=== PATIENT | male | born 1965 | race Hispanic/Latino ===

== ENCOUNTER 2025-07-13 11:07 | Inpatient (IN) | payer BC ==
[~2025-07-13] VITALS: Ht 172.7 cm; Wt 94.1 kg
[~2025-07-13 11:07] MED LIST: AMLO-258 PO; ASPI-1005 PO; ATOR20TA65 PO; CARAL PO; FERR325T22 PO; LOSA50TA64 PO; METO-409 PO; OMEP40CA21 PO; PANT40TA PO
--- NOTE | 2025-07-13 11:12 | ERN ---
ED Note History of Present Illness Stated Complaint: ABN NA. CHL. AST Chief Complaint: Abnormal Labs Time Seen by MD: 11:08 Dictation: PATIENT IS A 60-YEAR-OLD MALE COMING IN FROM [facility] WITH COMPLAINTS OF HAVING ABNORMAL LABS. HE STATES HE HAD BLOOD DRAWN AT [facility] ON 07/08, TODAY WAS CALLED IN AND TOLD THAT HIS SODIUM WAS 123, CHLORIDE 89 AND AST WAS 60. HE DOES NOT HAVE ANY COMPLAINTS AT THIS TIME. STATES HE WAS JUST ADVISED TO COME TO THE EMERGENCY ROOM FOR FURTHER EVALUATION AND TREATMENT. Allergies: Coded Allergies: No Known Drug Allergies (Verified Allergy, Unknown, 11/27/15) Home Meds Active Scripts Ferrous Sulfate (Ferrous Sulfate) 325 Mg Tablet, 325 MG PO DAILY for 15 Days, #15 TAB Prov:HOSSEIN MAURO [facility]ICING [facility] 04/26/20 Sucralfate (Carafate Susp) 1 Gm/10 Ml Susp, 1 GM PO TID for 15 Days, #450 ML Prov:HOSSEIN MAURO NP 04/26/20 Omeprazole (Omeprazole) 40 Mg Capsule.dr, 40 MG PO BID for 15 Days, #30 CAP Prov:HOSSEIN MAURO [facility] 04/26/20 Ferrous Sulfate (Ferrous Sulfate) 325 Mg Tablet, 325 MG PO DAILY for 15 Days, #15 TAB Prov:HOSSEIN MAURO NP 04/26/20 Pantoprazole Sodium (Protonix) 40 Mg Tablet.dr, 40 MG PO DAILY for 15 Days, #15 TAB Prov:HOSSEIN MAURO [facility] 04/26/20 Reported Medications Amlodipine Besylate (Amlodipine Besylate) 10 Mg Tablet, 10 MG PO HS, TAB 04/24/20 Aspirin (ASPIRIN 81MG CHEW TAB) 81 Mg Tab.chew, 81 MG PO DAILY, TAB.CHEW 04/24/20 Losartan Potassium (Losartan Potassium) 50 Mg Tablet, 50 MG PO DAILY, TAB 04/24/20 Atorvastatin Calcium (Atorvastatin Calcium) 20 Mg Tablet, 20 MG PO DAILY, TAB 04/24/20 Metoprolol Succinate (Metoprolol Succinate) 100 Mg Tab.er.24h, 100 MG PO DAILY, TAB 11/27/15 Past Medical History RN Note Reviewed/Agreed w/PFSH: Yes Review of System Dictation CONSTITUTIONAL: NEGATIVE EXCEPT FOR HPI HEAD/FACE: NEGATIVE EXCEPT FOR HPI EENT: NEGATIVE EXCEPT FOR HPI RESPIRATORY: NEGATIVE EXCEPT FOR HPI GASTROINTESTINAL/ABDOMINAL: NEGATIVE EXCEPT FOR HPI GENITOURINARY: NEGATIVE EXCEPT FOR HPI MUSCULOSKELETAL: NEGATIVE EXCEPT FOR HPI INTEGUMENTARY: NEGATIVE EXCEPT FOR HPI NEUROLOGICAL/PSYCH: NEGATIVE EXCEPT FOR HPI HEMATOLOGIC/LYMPHATIC: NEGATIVE EXCEPT FOR HPI ALL SYSTEMS NEGATIVE, EXCEPT NOTED ABOVE. 13 POINT REVIEW OF SYSTEMS ASSESSED AND ALL NEGATIVE EXCEPT FOR ABOVE. Initial Vital Sign VS Vital Signs Date Time Temp Pulse Resp B/P (MAP) Pulse Ox O2 Delivery O2 Flow Rate FiO2 07/13/25 11:08 97.9 83 16 147/83 97 Room Air 0 07/13/25 14:28 21 Physical Exam Dictation VITAL SIGNS REVIEWED GENERAL APPEARANCE: ALERT, ORIENTED X 3, NO ACUTE DISTRESS, WELL DEVELOPED, NOURISHED. NO FOCAL COMPLAINTS 0/10 PAIN HEAD AND FACE: NON-TRAUMATIC. EYES: PERRL, PINK CONJUNCTIVAS, EYELID NO TRAUMA, ANTERIOR CHAMBER WITH ARCUS SENILIS. EARS: PINNAS INTACT AND NO SIGNS OF TRAUMA OR ERYTHEMA EAR CANALS CLEAR AND NO DISCHARGE TM NO ERYTHEMA NOSE: NO DISCHARGE, NO BLEEDING. OROPHARYNX: MOUTH NORMAL, TONGUE PINK, PHARYNX CLEAR,NO ERYTHEMA, TONSILS NO EXUDATES, NO ABSCESSES NOTED, MUCOUS MEMBRANE MOIST NECK: SUPPLE, NON-TENDER, NO THYROMEGALY, NO MASSES, NO JVD, NO BRUITS BREAST:DEFERRED CHEST:NO TENDERNESS, NO CREPITUS, NO PARADOXICAL MOVEMENT, NO RETRACTIONS LUNGS:CLEAR, WELL-VENTILATED, SYMMETRIC, NO RALES, NO WHEEZING, NO RHONCHI, NO STRIDOR, GOOD BREATH SOUNDS BILATERALLY HEART: REGULAR RATE, REGULAR RHYTHM, NO MURMUR, NO GALLOPS VASCULAR: NO PERIPHERAL EDEMA, ABDOMEN: SOFT, POSITIVE BOWEL SOUNDS, NONDISTENDED, NO GUARDING, NONTENDER, NO REBOUND, NO MASSES NO HEPATOMEGALY, NO SPLENOMEGALY, NO SOSA'S SIGN, NO HERNIAS. RECTAL: DEFERRED GENITAL: DEFERRED NEUROLOGICAL: NORMAL SPEECH, MOTOR FUNCTION INTACT, SENSORY FUNCTION INTACT MUSCULOSKELETAL: NECK NONTENDER, FULL RANGE OF MOTION, BACK NONTENDER, FULL RANGE OF MOTION, EXTREMITIES: NONTENDER, FULL RANGE OF MOTION SKIN: COLOR PINK, DRY, NO TURGOR, NO RASH, NO LACERATIONS, NO ABRASIONS, NO CONTUSIONS. LYMPHATIC: DEFERRED Results (Laboratory/Radiology) Laboratory/Radiology Laboratory Tests Test 07/13/25 11:23 07/13/25 11:27 Urine Color LIGHT-YELLOW (YELLOW) Urine Appearance CLEAR (CLEAR) Urine pH 6.5 (5.0-8.0) Urine Specific [place] 1.004 (1.001-1.031) Urine Protein NEGATIVE mg/dL (NEGATIVE) Urine Glucose (UA) NEGATIVE mg/dL (NEGATIVE) Urine Ketones NEGATIVE mg/dL (NEGATIVE) Urine Occult Blood NEGATIVE (NEGATIVE) Urine Nitrate NEGATIVE (NEGATIVE) Urine Bilirubin NEGATIVE mg/dL (NEGATIVE) Urine Urobilinogen 0.2 mg/dL (0.2-1.0) Urine Leukocyte Esterase NEGATIVE Shaggy/uL White Blood Count 6.5 K/uL (4.8-10.8) Red Blood Count 4.51 MIL/uL (4.50-6.20) Hemoglobin 14.7 g/dL (14.0-18.0) Hematocrit 40.7 % (42-54) L Mean Corpuscular Volume 90.2 fL (79-99) Mean Corpuscular Hemoglobin 32.6 pg (27.0-33.0) Mean Corpuscular Hemoglobin Concent 36.1 g/dL (32.0-36.0) H Red Cell Distribution Width 12.3 % (11.0-15.5) Platelet Count 201 K/uL (130-400) Mean Platelet Volume 8.9 fL (7.5-10.5) Immature Granulocyte % (Auto) 1.7 % (0-1) H Neutrophils (%) (Auto) 77.6 % (40.0-77.0) H Lymphocytes (%) (Auto) 10.5 % (21.0-51.0) L Monocytes (%) (Auto) 8.2 % (3.0-13.0) Eosinophils (%) (Auto) 1.2 % (0.0-8.0) Basophils (%) (Auto) 0.8 % (0.0-5.0) Neutrophils # (Auto) 5.0 K/uL (1.8-7.7) Lymphocytes # (Auto) 0.7 K/uL (1.0-4.8) L Monocytes # (Auto) 0.5 K/uL (0.1-1.0) Eosinophils # (Auto) 0.08 K/uL (0.00-0.70) Basophils # (Auto) 0.05 K/uL (0.00-0.20) Absolute Immature Granulocyte (auto 0.11 K/uL (0-1) Nucleated Red Blood Cells 0.0 % (0.0-0.19) Red Blood Cell Morphology See comments Sodium Level 121 mmol/L (136-145) L Potassium Level 3.8 mmol/L (3.5-5.1) Chloride Level 90 mmol/L (101-111) *L Carbon Dioxide Level 26 mmol/L (21-32) Blood Urea Nitrogen 16 mg/dL (7-18) Creatinine 1.0 mg/dL (0.5-1.3) Glomerular Filtration Rate Calc 87 mL/min (>90) Random Glucose 109 mg/dL (70-105) H Total Calcium 7.6 mg/dL (8.5-10.1) L Total Bilirubin 0.9 mg/dL (0.2-1.0) Aspartate Amino Transf (AST/SGOT) 61 U/L (10-37) H Alanine Aminotransferase (ALT/SGPT) 39 U/L (12-78) Alkaline Phosphatase 198 U/L (50-136) H Total Protein 4.6 g/dL (6.0-8.3) L Albumin 2.0 g/dL (3.5-5.0) L 1445/ULTRASOUND RIGHT UPPER QUADRANT DEMONSTRATES A SIZE TEAS PATIENT IS CONTRACTED GALLBLADDER GALLBLADDER WALL NORMAL COMMON BILE DUCT NORMAL NO PERICHOLECYSTIC FLUID Labs Reviewed?: Yes ED Course ED Course Orders Procedure Category Date Status Time Cbc With Differential LAB 07/13/25 Complete 11:10 Comprehensive LAB 07/13/25 Complete Metabolic Panel 11:10 Urinalysis Profile LAB 07/13/25 Complete 11:10 0.9%Nacl 1000ml (Ns PHA 07/13/25 Complete 1000ml) 11:30 Us Abdominal Ruq\Ltd US 07/13/25 Resulted 13:56 Cacl 1gm Syg (Calcium PHA 07/13/25 Complete Chloride 1g Syg) 15:00 Edm Admit Bridge Order ADM 07/13/25 Verified 16:04 Current Medications Medications (Trade) Dose Ordered Sig/Emeli Route PRN Reason Start Time Stop Time Status Last Admin Dose Admin Calcium Chloride (Calcium Chloride 1g Syg) 1,000 mg ONCE ONCE IVP 07/13/25 15:00 07/13/25 15:01 DC Sodium Chloride 1,000 ml @ 0 mls/hr ONCE ONCE IV 07/13/25 11:30 07/13/25 11:31 DC 07/13/25 14:28 Vital Signs Date Time Temp Pulse Resp B/P (MAP) Pulse Ox O2 Delivery O2 Flow Rate FiO2 07/13/25 14:28 98.1 81 18 127/80 97 Room Air* 0 21 07/13/25 11:08 97.9 83 16 147/83 97 Room Air 0 1450/PATIENT HAS A SODIUM OF 121 CALCIUM IS 7.9. HE ALSO HAS A ELEVATED ALK- PHOS WE WILL ADMIT PATIENT TO THE HOSPITAL FOR DEHYDRATION CIRRHOSIS ELECTROLYTE IMBALANCE AND FLUID RESUSCITATION AND MANAGEMENT. 1605/SPOKE WITH , REVIEWED LABS AND INTERVENTIONS FOR LOW-SODIUM AND LOW CALCIUM. HE AGREED TO ADMIT PATIENT. Medical Decision Making MDM MDM: DIFFERENTIAL DIAGNOSIS: ELECTROLYTE IMBALANCE/DEHYDRATION/CIRRHOSIS/P ANCREATITIS/UTI/CHOLELITHIASIS/CHOLEDOCHO CYSTITIS RATIONALE: TESTS CONSIDERED AND ORDERED SECONDARY TO SHARED DECISION MAKING I NCLUDE: LABS, ECG AND RADIOLOGY PREVIOUS OUTSIDE RECORDS REVIEWED: OLD ER VISITS. RISK OF COMPLICATION AND/OR MORBIDITY OR MORTALITY OF PATIENT MANAGEMENT: NONE MEDICATIONS-PER MEDICATION RECONCILIATION NEED FOR HOSPITALIZATION: PATIENT DOES MEET CRITERIA FOR HOSPITALIZATION. WE WILL NEED BE ADMITTED FOR FLUID RESUSCITATION AND DRESSING OF ELEVATED ALK-PHOS AND ELECTROLYTE IMBALANCE NEED FOR EMERGENCY MAJOR/MINOR SURGERY: NO THERE ARE NO SOCIAL CONCERNS WITH THIS PATIENT. PRESCRIPTION DRUG MANAGEMENT PRESCRIPTIONS WILL INCLUDE SYMPTOMATIC CARE PATIENT'S PRIOR EXTERNAL MEDICAL RECORDS FROM OTHER ER VISITS WERE REVIEWED BY ME INDICATED. PRIOR TESTING AND RESULTS FROM PREVIOUS VISITS WERE REVIEWED. PRIOR TESTS WERE TAKEN INTO ACCOUNT WITH MEDICAL DECISION MAKING AND RESOURCE UTILIZATION, INDEPENDENT HISTORIAN/HISTORIANS WERE USED TO OBTAIN COMPLETE MEDICAL HISTORY. I INDEPENDENTLY INTERPRETED THE TEST THAT WERE PERFORMED, RESULTS WERE REVIEWED BY ME AND CONSIDERED FINDINGS ON RADIOLOGY IF ORDERED. MEDICAL MANAGEMENT AND EXAMINATION INTERPRETATION DISCUSSIONS WERE HAD BY ME WITH OTHER QUALIFIED HEALTHCARE PROFESSIONALS INDICATED FOR THE PATIENT'S CARE. DX & DISP Disposition: Inpatient Decision to Admit Time: 14:50 Departure Impression: Primary Impression: Hyponatremia Additional Impressions: Hypochloremia, Hypocalcemia, Elevated alkaline phosphatase level, Hypoalbuminemia, Cirrhosis Condition: Stable Referrals: SELF,REFERRAL (PCP) I have reviewed the case, and I agree with, Diagnosis and Plan ZITA BECERRA Jul 13, 2025 11:12
[2025-07-13 11:45] LABS: IMMATURE GRANULOCYTE ABSOLUTE 0.11 K/uL (0-1); NUCLEATED RED BLOOD CELLS 0.0 % (0.0-0.19); PLATELET COUNT (AUTO) 201 K/uL (130-400); RED BLOOD CELL COUNT(AUTO) 4.51 MIL/uL (4.50-6.20); RED CELL DISTRIBUTION WIDTH 12.3 % (11.0-15.5); WHITE BLOOD COUNT (AUTO) 6.5 K/uL (4.8-10.8)
[2025-07-13 12:04] LABS: APPEARANCE,URINE CLEAR (CLEAR); GLUCOSE, URINE (UA) NEGATIVE (NEGATIVE); LEUKOCYTE ESTERASE ,URINE NEGATIVE Leu/uL (NEGATIVE); NITRATE,URINE NEGATIVE (NEGATIVE); OCCULT BLOOD,URINE NEGATIVE (NEGATIVE)
[2025-07-13 12:04] LABS: ASPARTATE AMINOTRANSFERASE 61.0 U/L (10-37); CREATININE 1.0 mg/dL (0.5-1.3); GLOMERULAR FILTR. RATE CALC 87.0 mL/min (>90); GLUCOSE,RANDOM 109.0 mg/dL (70-105); SODIUM SERUM 121.0 mmol/L (136-145); TOTAL PROTEIN, SERUM 4.6 g/dL (6.0-8.3); UREA NITROGEN, BLOOD 16.0 mg/dL (7-18)
[2025-07-13 12:06] LABS: ADD UA MICROSCOPIC NO
[2025-07-13] MEDS: 0.9%NACL 1000ML 1,000 ML IV ONE (14:28)
[2025-07-13] MEDS: CACL 1GM SYG IVP ONE (15:00)
--- NOTE | 2025-07-13 15:04 | HMCIMG ---
EXAM: US Abdomen, Right Upper Quadrant. CLINICAL HISTORY: RIGHT UPPER QUADRANT PAIN/ELEVATED LFTS TECHNIQUE: Right upper quadrant sonography performed with image documentation. COMPARISON: Study dated 04/23/20. FINDINGS: LIVER: The liver is enlarged and measures approximately 18 cm. Coarse hepatic echotexture. A focal, rounded hyperechoic area( series 1, image 11 ) measuring 1.5 cm is visualized along the liver parenchyma. Further evaluation with CT triple phase abdomen and pelvis is recommended. Mild ascites is present. GALLBLADDER: The gallbladder appears contracted. Gallbladder wall thickness measures approximately 3 mm. No gallstones are evident. COMMON BILE DUCT: Measures approximately 4 mm. No biliary dilatation. PANCREAS: The pancreas is obscured by overlying bowel gas and is not adequately visualized.RIGHT KIDNEY: The right kidney measures 10.2 x 4.9 x 4.9 cm. Normal renal contours. No renal mass or calculus. No hydronephrosis. IMPRESSION: 1. Enlarged liver with coarse echotexture, suggestive of chronic liver disease. 2. 1.5 cm focal hyperechoic liver lesion, further evaluation with CT triple phase abdomen and pelvis recommended. 3. Mild ascites. /[place]
[2025-07-13] MEDS ORDERED: THIAMINE HCL 100 MG/ML 2ML VIAL IVP SCH (17:00)
--- NOTE | 2025-07-13 17:19 | NUR ---
PER DR BRANTELY, HOLD THE CALCIUM MEDICATION AT THIS TIME.
[2025-07-13 17:29] LABS: INR 1.02 (0.85-1.15)
[2025-07-13] MEDS ORDERED: PHARMACY COMMUNICATION MISC PRN (17:30)
[2025-07-13 17:45] LABS: CREATININE 1.1 mg/dL (0.5-1.3); GLOMERULAR FILTR. RATE CALC 77.0 mL/min (>90); GLUCOSE,RANDOM 103.0 mg/dL (70-105); SODIUM SERUM 123.0 mmol/L (136-145); UREA NITROGEN, BLOOD 14.0 mg/dL (7-18)
[2025-07-13 17:47] LABS: ALCOHOL, BLOOD 4 mg/dL (0-10)
[2025-07-13] MEDS ORDERED: IOHEXOL-350 75 ML VIAL IV ONE (17:52)
--- NOTE | 2025-07-13 18:12 | NUR ---
PER MD BRANTLEY, GI AND NEPHRO CONSULTS HAVE BEEN DONE.
[2025-07-13] MEDS: MAGNESIUM 2GM PREMIX 50ML 50 ML IV SCH (18:28)
[2025-07-13] MEDS ORDERED: PoTASSium chloRIDE 20MEQ ER 20 MEQ ERTAB PO PRN (18:30)
[2025-07-13] MEDS ORDERED: PoTASSium chl 10% ELIXIR 20MEQ 20 MEQ/15 ML UDCUP PO PRN (18:30)
[2025-07-13] MEDS: ALBUMIN (HUMAN) 25% 50 ML IV SCH (18:41)
[2025-07-13] MEDS: THIAMINE HCL 100 MG/ML 2ML VIAL IVP SCH (18:41)
--- NOTE | 2025-07-13 18:55 | HP ---
[facility] HISTORY AND PHYSICAL Date of Service: Jul 13, 2025 Time of Service: 18:55 HISTORY OF PRESENT ILLNESS: This is a 60 year old male with PMHx significant for HTN, HLD, Chronic alcoholism, Obesity, Gout who presented to the Hospital for further evaluation of abnormal labs. Patient had routine labs performed at PCP's office where he was found to have Sodium of 123 and Chloride of 89. Patient currently denies any headache, memory issues, nausea or vomiting. He reports that he has hx of chronic lower extremity edema for which he takes HCTZ 12.5 mg bid. He has also noticed that recently he has been having progressive abdominal distension, He has also noticed a reducible umbilical hernia involving the abdomen. He denies any bleeding issues. Reports drinking beer chronically since his 20's. Used to drink heavily and currently drinks about 3-4 beers daily. Denies significant hx of alcohol withdrawals. Reports having hx of HTN and is maintained on outpatient tx with Losartan 50 mg daily, Metoprolol succinate 100 mg daily. Patient on presentation to the hospital was found to have sodium of 121 and abnormal LFT's with AST of 61, ALT of 39 and Alk Phos of 198. Patient will be admitted to cardiac telemetry floor. We will stop HCTZ which is likely contributing to the Hyponatremia. Patient with signs of decompensated of liver disease with signs of ascites and chronic alcoholic hepatitis. Plan to rule out cirrhosis of the liver due to chronic alcoholism and patient will undergo CT triple phase for further evaluation of 1.5 cm focal hyperechoic liver lesion noted on abdominal US. We will see how patient progresses in the next 48-72 hours. REVIEW OF SYSTEMS CONSTITUTIONAL: Denies fevers, chills, or night sweats. No unintentional weight loss reported. NEUROLOGICAL: Denies headache, amaurosis fugax, motor weakness, sensory deficit, vertigo/spinning sensation, gait abnormalities, or tremors. ENT: No hearing loss, otalgia, otorrhea, rhinitis, rhinorrhea, hoarseness, or sore throat. CARDIOVASCULAR: Denies any exertional angina, dyspnea on exertion, orthopnea, paroxysmal nocturnal dyspnea, palpitations, life-threatening arrhythmias, claudication. PULMONARY: Denies any shortness of breath, cough, phlegm/sputum, hemoptysis, pleuritic chest pain. SLEEP: Denies morning headaches, daytime somnolence or napping. Denies difficulty falling asleep, staying asleep, waking from sleep. Denies knowledge of snoring. GASTROINTESTINAL: Denies any type of dysphagia to either liquids or solids. Denies nausea, vomiting, pyrosis, early satiety, abdominal pain, diarrhea, constipation, or changes in stool consistency or caliber. Denies coffee-ground emesis, hematemesis, hematochezia, or melanotic stools. Reports having progressive abdominal distension GENITOURINARY: Denies frequency, urgency, nocturia, hematuria or incontinence (Storage/Irritative symptoms.) Low urinary stream, straining to void, urinary intermittency or hesitancy, splitting of the voiding stream, terminal dribbling. ENDOCRINOLOGIC: Denies polyuria, polydipsia, polyphagia or heat/cold intolerances. HEMATOLOGIC: Denies thrombophilia/previous clots, or coagulopathy/bleeding disorders. ONCOLOGIC: Denies personal history of malignancy. DERMATOLOGIC: Denies rashes or pruritus. PSYCHIATRIC: Denies any suicidal or homicidal ideation. Denies hallucinations. 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 Resting in bed NEUROLOGICAL: Cranial nerves II-XII grossly intact. Motor is 5/5 in bilateral upper and lower extremities proximal to distal. No sensory deficits. HEENT: Face is symmetric. Pupils are equal and reactive. Extraocular movements are intact. NECK: Supple. No JVD. No thyromegaly. No submental, submandibular, pre- /postauricular, occipital or supraclavicular lymphadenopathy. CHEST: Normal chest expansion. No Telemetry. LUNGS: Absence of any rales, rhonchi or any wheezing. CARDIOVASCULAR: Regular. S1 and S2 normal. No appreciable rubs, murmurs or gallops. ABDOMEN: Distended with reducible umbilical hernia noted, fluid wave noted : Deferred. No [place]. EXTREMITIES: 2+ edema noted of the bilateral lower extremities SKIN: No skin breakdown. Vital Sign (Last 24 Hours) 07/13/25 14:28 Temp 98.1 Pulse 81 Resp 18 B/P (MAP) 127/80 Pulse Ox 97 O2 Delivery Room Air* O2 Flow Rate 0 FiO2 21 LABS: Laboratory: Test 07/13/25 17:09 07/13/25 11:27 07/13/25 11:23 Range/Units Prothrombin Time 10.8 9.6-11.6 SEC Prothromb Time International Ratio 1.02 0.85-1.15 Activated Partial Thromboplast Time 28.6 26.3-35.5 SEC Sodium Level 123 L 136-145 mmol/L Potassium Level 3.6 3.5-5.1 mmol/L Chloride Level 90 *L 101-111 mmol/L Carbon Dioxide Level 25 21-32 mmol/L Blood Urea Nitrogen 14 7-18 mg/dL Creatinine 1.1 0.5-1.3 mg/dL Glomerular Filtration Rate Calc 77 >90 mL/min Random Glucose 103 70-105 mg/dL Total Calcium 7.7 L 8.5-10.1 mg/dL Magnesium Level 1.60 L 1.80-2.40 mg/dL Ammonia < 10 L 11-32 umol/L Thyroid Stimulating Hormone (TSH) 2.52 0.36-3.74 uIU/mL Serum Alcohol 4 0-10 mg/dL White Blood Count 6.5 4.8-10.8 K/uL Red Blood Count 4.51 4.50-6.20 MIL/uL Hemoglobin 14.7 14.0-18.0 g/dL Hematocrit 40.7 L 42-54 % Mean Corpuscular Volume 90.2 79-99 fL Mean Corpuscular Hemoglobin 32.6 27.0-33.0 pg Mean Corpuscular Hemoglobin Concent 36.1 H 32.0-36.0 g/dL Red Cell Distribution Width 12.3 11.0-15.5 % Platelet Count 201 130-400 K/uL Mean Platelet Volume 8.9 7.5-10.5 fL Immature Granulocyte % (Auto) 1.7 H 0-1 % Neutrophils (%) (Auto) 77.6 H 40.0-77.0 % Lymphocytes (%) (Auto) 10.5 L 21.0-51.0 % Monocytes (%) (Auto) 8.2 3.0-13.0 % Eosinophils (%) (Auto) 1.2 0.0-8.0 % Basophils (%) (Auto) 0.8 0.0-5.0 % Neutrophils # (Auto) 5.0 1.8-7.7 K/uL Lymphocytes # (Auto) 0.7 L 1.0-4.8 K/uL Monocytes # (Auto) 0.5 0.1-1.0 K/uL Eosinophils # (Auto) 0.08 0.00-0.70 K/uL Basophils # (Auto) 0.05 0.00-0.20 K/uL Absolute Immature Granulocyte (auto 0.11 0-1 K/uL Nucleated Red Blood Cells 0.0 0.0-0.19 % Red Blood Cell Morphology See comments Total Bilirubin 0.9 0.2-1.0 mg/dL Aspartate Amino Transf (AST/SGOT) 61 H 10-37 U/L Alanine Aminotransferase (ALT/SGPT) 39 12-78 U/L Alkaline Phosphatase 198 H 50-136 U/L Total Protein 4.6 L 6.0-8.3 g/dL Albumin 2.0 L 3.5-5.0 g/dL Urine Color LIGHT-YELLOW YELLOW Urine Appearance CLEAR CLEAR Urine pH 6.5 5.0-8.0 Urine Specific [place] 1.004 1.001-1.031 Urine Protein NEGATIVE NEGATIVE mg/dL Urine Glucose (UA) NEGATIVE NEGATIVE mg/dL Urine Ketones NEGATIVE NEGATIVE mg/dL Urine Occult Blood NEGATIVE NEGATIVE Urine Nitrate NEGATIVE NEGATIVE Urine Bilirubin NEGATIVE NEGATIVE mg/dL Urine Urobilinogen 0.2 0.2-1.0 mg/dL Urine Leukocyte Esterase NEGATIVE NEGATIVE Shaggy/uL Current Medications Medications (Trade) Dose Ordered Sig/Emeli Route PRN Reason Start Time Stop Time Status Last Admin Dose Admin Albumin Human 50 ml @ 0 mls/hr Q6H IV 07/13/25 17:00 07/14/25 17:00 07/13/25 18:41 50 MLS/HR Allopurinol (ZYLOprim 100MG) 100 mg DAILY PO 07/14/25 09:00 08/13/25 08:59 Aspirin (Aspirin 81mg Ec Tab) 81 mg DAILY PO 07/14/25 09:00 08/13/25 08:59 Chlordiazepoxide HCl (LIBrium 25 MG CAP) 25 mg Q4H PRN PO ALCOHOL WITHDRAWAL PROTOCOL 07/13/25 17:30 07/20/25 17:29 Folic Acid (FOLic ACID 1 MG TABLET) 1 mg DAILY PO 07/14/25 09:00 08/13/25 08:59 Lorazepam (AtiVAN) 1 mg Q4H PRN IVP ALCOHOL WITHDRAWAL PROTOCOL 07/13/25 17:30 07/20/25 17:29 Losartan Potassium (CozAAR 50 mg TAB) 50 mg DAILY PO 07/14/25 09:00 08/13/25 08:59 Magnesium Sulfate 50 ml @ 0 mls/hr PROTOCOL IV 07/13/25 18:30 08/12/25 18:29 07/13/25 18:28 25 MLS/HR Metoprolol Succinate (TopROL XL) 100 mg DAILY PO 07/14/25 09:00 08/13/25 08:59 Multivitamins Therapeutic (Multivitamin Tablet) 1 tab DAILY PO 07/14/25 09:00 08/13/25 08:59 Pharmacy Profile Note (Pharmacy Communication) 1 each PROTOCOL PRN MISC ETOH Withdrawal Score changes 07/13/25 17:30 07/13/25 17:28 DC Potassium Chloride 100 ml @ 100 mls/hr AD PRN IV POTASSIUM PROTOCOL 07/13/25 18:30 08/12/25 18:29 Potassium Chloride (K-Dur/Klor-Con 20meq) 20 meq AD PRN PO POTASSIUM PROTOCOL 07/13/25 18:30 08/12/25 18:29 Potassium Chloride (KCl 10% Elixir 20meq/15ml) 20 meq AD PRN PO POTASSIUM PROTOCOL 07/13/25 18:30 08/12/25 18:29 Thiamine HCl (Vitamin B-1) 100 mg Q24H IVP 07/13/25 17:00 08/12/25 16:59 07/13/25 18:41 100 MG Thiamine HCl (Vitamin B-1) 100 mg Q24H IVP 07/13/25 17:00 07/13/25 17:20 DC DIAGNOSTICS / RADIOLOGY: SERVICE 1356 REASON: RIGHT UPPER QUADRANT PAIN/ELEVATED LFTS ORDERING PHYSICIAN: ZITA BECERRA PROCEDURE: [id number] - US ABDOMINAL RUQ\LTD EXAM: US Abdomen, Right Upper Quadrant. CLINICAL HISTORY: RIGHT UPPER QUADRANT PAIN/ELEVATED LFTS TECHNIQUE: Right upper quadrant sonography performed with image documentation. COMPARISON: Study dated 04/23/20. FINDINGS: LIVER: The liver is enlarged and measures approximately 18 cm. Coarse hepatic echotexture. A focal, rounded hyperechoic area( series 1, image 11 ) measuring 1.5 cm is visualized along the liver parenchyma. Further evaluation with CT triple phase abdomen and pelvis is recommended. Mild ascites is present. GALLBLADDER: The gallbladder appears contracted. Gallbladder wall thickness measures approximately 3 mm. No gallstones are evident. COMMON BILE DUCT: Measures approximately 4 mm. No biliary dilatation. PANCREAS: The pancreas is obscured by overlying bowel gas and is not adequately visualized.RIGHT KIDNEY: The right kidney measures 10.2 x 4.9 x 4.9 cm. Normal renal contours. No renal mass or calculus. No hydronephrosis. IMPRESSION: 1. Enlarged liver with coarse echotexture, suggestive of chronic liver disease. 2. 1.5 cm focal hyperechoic liver lesion, further evaluation with CT triple phase abdomen and pelvis recommended. 3. Mild ascites. /[place] DICTATED BY: EARLENE NANCE MD DATE: 07/13/251603 ELECTRONICALLY SIGNED BY: EARLENE NANCE MD DATE: 07/13/251603 ASSESSMENT: Moderate to severe Hyponatremia, POA (Multifactorial 2/2 HCTZ use and Hypervolem ic Hyponatremia) Decompensated Chronic Liver Disease with ascites, POA Chronic Alcoholic Hepatitis, POA r/o Cirrhosis of Liver likely Secondary to half-way alcohol consumption, POA Hx of HCTZ use as outpatient, POA Chronic Alcoholism, POA 1.5 cm focal hyperechoic liver lesion noted on Abd US, POA Hx of HTN, POA HLD, POA DM II, POA Obesity, POA PLAN: Patient will be admitted to cardiac telemetry floor HCTZ will be stopped Diuretics will be withdrawn until Sodium is stable and at least > 125 BMP will checked q 6 h Maintain fluid restrictions of 1.2 L daily Will obtain CT triple phase for further evaluation of 1.5 cm Hyperechoic liver lesion noted on abd US, will assess ascites, evaluate for liver cirrhosis and portal HTN Will start patient on IV Albumin 25 g q6h x 24 hours Will request consultation with GI and Nephrology Will check viral hepatitis panel, HIV serology for screening c/w Losartan 50 mg daily and Metoprol succinate 100 mg daily Will keep patient on SSI ac and hs All labs will be repeated in the morning, Will check AFP level Patient was extensively counseled to cut down and 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 Yes _x_ No __ Amount of time spent: 20 minutes HORACIO HENDRICKS MD Jul 13, 2025 18:55
--- NOTE | 2025-07-13 19:11 | NUR ---
URINAL PROVIDED AT THIS TIME.
[2025-07-13] MEDS ORDERED: PRAV20TA59 PO (22:11)
[2025-07-13] MEDS ORDERED: ALLO100T PO (22:11)
[2025-07-13] MEDS ORDERED: METF-444 PO (22:11)
[2025-07-14 00:35] LABS: CREATININE 0.9 mg/dL (0.5-1.3); GLOMERULAR FILTR. RATE CALC 98.0 mL/min (>90); GLUCOSE,RANDOM 91.0 mg/dL (70-105); SODIUM SERUM 126.0 mmol/L (136-145); UREA NITROGEN, BLOOD 15.0 mg/dL (7-18)
[2025-07-14 07:13] LABS: IMMATURE GRANULOCYTE ABSOLUTE 0.04 K/uL (0-1); NUCLEATED RED BLOOD CELLS 0.0 % (0.0-0.19); PLATELET COUNT (AUTO) 168 K/uL (130-400); RED BLOOD CELL COUNT(AUTO) 4.13 MIL/uL (4.50-6.20); RED CELL DISTRIBUTION WIDTH 12.4 % (11.0-15.5); WHITE BLOOD COUNT (AUTO) 5.1 K/uL (4.8-10.8)
[2025-07-14 07:20] LABS: CREATININE 1.0 mg/dL (0.5-1.3); GLOMERULAR FILTR. RATE CALC 87.0 mL/min (>90); GLUCOSE,RANDOM 100.0 mg/dL (70-105); SODIUM SERUM 129.0 mmol/L (136-145); UREA NITROGEN, BLOOD 14.0 mg/dL (7-18)
--- NOTE | 2025-07-14 07:43 | HMCIMG ---
EXAMINATION: CT Abdomen and Pelvis without and with contrast. CLINICAL HISTORY: CT triple phase to assess for liver lesion, history of alcohol use. TECHNIQUE: Multiple contiguous axial CT images were obtained through the abdomen and pelvis following the administration of intravenous contrast. Coronal and sagittal reconstructions were also obtained. COMPARISON: Prior CT abdomen and pelvis on 04/23/2020 FINDINGS: The included chest is within normal limits. The liver is enlarged, measuring 18 cm. The liver is nodular in contour with uniform decreased density, a prominent caudate lobe, and a prominent portal vein. There is a non-enhancing hypodense lesion in segment V measuring 0.8 x 1.0 cm. The gallbladder, spleen, pancreas, adrenal glands and kidneys appear within normal limits. Bowel loops are normal in caliber without evidence of obstruction, ileus, or obvious bowel wall thickening. There is a small umbilical hernia. The urinary bladder is well distended with normal wall thickening. The Prostate is normal in caliber. Both seminal vesicles are normal. There is moderate ascites. No lymphadenopathy. The opacified abdominal and pelvic vessels are patent. There are atheromatous wall calcification of the aorta and iliac arteries. No acute or suspicious osseous abnormality. There are multilevel mild degenerative spondylotic changes of the spine. IMPRESSION: Cirrhotic liver with fatty infiltration. Non-enhancing hypodense lesion in segment V of the liver cyst. No suspicious hepatic lesions. Moderate ascites. /[place]
--- NOTE | 2025-07-14 08:06 | NUR ---
NEPHROLOGY CONSULT DR AUSTIN JUST ARRIVED TO SEE THE PT.
--- NOTE | 2025-07-14 08:10 | NUR ---
PER NEPRHO, PLACE PT IN FLUID RESTRICTION: 1500
[2025-07-14 08:12] LABS: HIV 1&2 ANTIBODY Non-Reactive (Negative)
--- NOTE | 2025-07-14 08:23 | NUR ---
DCP: HOME met with pt and his mother Aicha Martinez [phone]. Pt lives at the home of his sister and GINO. Pt is currently unemployed, no SSD, no govt assistance. Pt remains able to complete his ADLS, uses no DME or in home care services. PCP is Peyton Kaplan and uses [facility] for rx needs. Pt to return home at ct, family to transport
[2025-07-14] MEDS: MULTIVITAMIN TABLET PO SCH (10:56)
[2025-07-14] MEDS: ASPIRIN 81 MG EC TAB PO SCH (10:56)
--- NOTE | 2025-07-14 10:57 | PN ---
[facility] PROGRESS NOTE Date of Service: Jul 14, 2025 Time of Service: 10:57 SUBJECTIVE: HISTORY OF PRESENT ILLNESS: This is a 60 year old male with PMHx significant for HTN, HLD, Chronic alcoholism, Obesity, Gout who presented to the Hospital for further evaluation of abnormal labs. Patient had routine labs performed at PCP's office where he was found to have Sodium of 123 and Chloride of 89. Patient currently denies any headache, memory issues, nausea or vomiting. He reports that he has hx of chronic lower extremity edema for which he takes HCTZ 12.5 mg bid. He has also noticed that recently he has been having progressive abdominal distension, He has also noticed a reducible umbilical hernia involving the abdomen. He denies any bleeding issues. Reports drinking beer chronically since his 20's. Used to drink heavily and currently drinks about 3-4 beers daily. Denies significant hx of alcohol withdrawals. Reports having hx of HTN and is maintained on outpatient tx with Losartan 50 mg daily, Metoprolol succinate 100 mg daily. Patient on presentation to the hospital was found to have sodium of 121 and abnormal LFT's with AST of 61, ALT of 39 and Alk Phos of 198. Patient will be admitted to cardiac telemetry floor. We will stop HCTZ which is likely contributing to the Hyponatremia. Patient with signs of decompensated of liver disease with signs of ascites and chronic alcoholic hepatitis. Plan to rule out cirrhosis of the liver due to chronic alcoholism and patient will undergo CT triple phase for further evaluation of 1.5 cm focal hyperechoic liver lesion noted on abdominal US. 07/14/2022: Patient was seen and evaluated this morning, family at bedside. He is awake, alert, oriented x3, saturating 100% at room air. Patient said that he is doing good, denies any new or worsening symptoms. Morning labs revealed white count 5.1, H&H 13.3, 37.7, sodium 129, potassium 3.8, magnesium 1.6. Abdominal ultrasound revealed enlarged liver due to chronic liver disease, 1.5 cm focal hyperechoic lesion. CT abdomen 3 phase cirrhotic liver with fatty infiltration, nonenhancing hypodense lesion in segment 5 of the liver -cyst. No suspicious hepatic lesions. Patient currently on 1.2 L fluid restriction, we will replace magnesium per protocol. Patient was started on Aldactone 50 mg daily, Lasix 20 mg daily. Nephrology, GI on board for further evaluation. REVIEW OF SYSTEMS CONSTITUTIONAL: Denies fevers, chills, or night sweats. No unintentional weight loss reported. NEUROLOGICAL: Denies headache, amaurosis fugax, motor weakness, sensory deficit, vertigo/spinning sensation, gait abnormalities, or tremors. ENT: No hearing loss, otalgia, otorrhea, rhinitis, rhinorrhea, hoarseness, or sore throat. CARDIOVASCULAR: Denies any exertional angina, dyspnea on exertion, orthopnea, paroxysmal nocturnal dyspnea, palpitations, life-threatening arrhythmias, claudication. PULMONARY: Denies any shortness of breath, cough, phlegm/sputum, hemoptysis, pleuritic chest pain. SLEEP: Denies morning headaches, daytime somnolence or napping. Denies difficulty falling asleep, staying asleep, waking from sleep. Denies knowledge of snoring. GASTROINTESTINAL: Denies any type of dysphagia to either liquids or solids. D enies nausea, vomiting, pyrosis, early satiety, abdominal pain, diarrhea, constipation, or changes in stool consistency or caliber. Denies coffee-ground emesis, hematemesis, hematochezia, or melanotic stools. Reports having progressive abdominal distension GENITOURINARY: Denies frequency, urgency, nocturia, hematuria or incontinence (Storage/Irritative symptoms.) Low urinary stream, straining to void, urinary intermittency or hesitancy, splitting of the voiding stream, terminal dribbling. ENDOCRINOLOGIC: Denies polyuria, polydipsia, polyphagia or heat/cold intolerances. HEMATOLOGIC: Denies thrombophilia/previous clots, or coagulopathy/bleeding disorders. ONCOLOGIC: Denies personal history of malignancy. DERMATOLOGIC: Denies rashes or pruritus. PSYCHIATRIC: Denies any suicidal or homicidal ideation. Denies hallucinations. PHYSICAL EXAM GENERAL APPEARANCE: The patient is awake, alert, and oriented, in no acute cardiopulmonary distress. Resting in bed NEUROLOGICAL: Cranial nerves II-XII grossly intact. Motor is 5/5 in bilateral upper and lower extremities proximal to distal. No sensory deficits. HEENT: Face is symmetric. Pupils are equal and reactive. Extraocular movements are intact. NECK: Supple. No JVD. No thyromegaly. No submental, submandibular, pre- /postauricular, occipital or supraclavicular lymphadenopathy. CHEST: Normal chest expansion. No Telemetry. LUNGS: Absence of any rales, rhonchi or any wheezing. CARDIOVASCULAR: Regular. S1 and S2 normal. No appreciable rubs, murmurs or gallops. ABDOMEN: Distended with reducible umbilical hernia noted, fluid wave noted : Deferred. No [place]. EXTREMITIES: 2+ edema noted of the bilateral lower extremities SKIN: No skin breakdown. Vital Signs (last 8hr) Date Time Temp Pulse Resp B/P (MAP) Pulse Ox O2 Delivery O2 Flow Rate FiO2 07/14/25 06:37 98.2 76 14 130/75 100 Room Air* 0 21 LABS: Laboratory: Test 07/14/25 07:06 07/13/25 20:17 07/13/25 17:09 07/13/25 11:27 Range/Units White Blood Count 5.1 4.8-10.8 K/uL Red Blood Count 4.13 L 4.50-6.20 MIL/uL Hemoglobin 13.3 L 14.0-18.0 g/dL Hematocrit 37.7 L 42-54 % Mean Corpuscular Volume 91.3 79-99 fL Mean Corpuscular Hemoglobin 32.2 27.0-33.0 pg Mean Corpuscular Hemoglobin Concent 35.3 32.0-36.0 g/dL Red Cell Distribution Width 12.4 11.0-15.5 % Platelet Count 168 130-400 K/uL Mean Platelet Volume 9.0 7.5-10.5 fL Immature Granulocyte % (Auto) 0.8 0-1 % Neutrophils (%) (Auto) 77.2 H 40.0-77.0 % Lymphocytes (%) (Auto) 8.2 L 21.0-51.0 % Monocytes (%) (Auto) 11.0 3.0-13.0 % Eosinophils (%) (Auto) 2.0 0.0-8.0 % Basophils (%) (Auto) 0.8 0.0-5.0 % Neutrophils # (Auto) 3.9 1.8-7.7 K/uL Lymphocytes # (Auto) 0.4 L 1.0-4.8 K/uL Monocytes # (Auto) 0.6 0.1-1.0 K/uL Eosinophils # (Auto) 0.10 0.00-0.70 K/uL Basophils # (Auto) 0.04 0.00-0.20 K/uL Absolute Immature Granulocyte (auto 0.04 0-1 K/uL Nucleated Red Blood Cells 0.0 0.0-0.19 % White Cell Morphology Comment See comments Sodium Level 129 L 136-145 mmol/L Potassium Level 3.8 3.5-5.1 mmol/L Chloride Level 96 L 101-111 mmol/L Carbon Dioxide Level 26 21-32 mmol/L Blood Urea Nitrogen 14 7-18 mg/dL Creatinine 1.0 0.5-1.3 mg/dL Glomerular Filtration Rate Calc 87 >90 mL/min Random Glucose 100 70-105 mg/dL Total Calcium 8.0 L 8.5-10.1 mg/dL HIV (1&2) Antibody Non-Reactive Negative HIV P24 Antigen, Qualitative Non-Reactive Negative Urine Random Creatinine 9.59 L 30-135 mg/dL Prothrombin Time 10.8 9.6-11.6 SEC Prothromb Time International Ratio 1.02 0.85-1.15 Activated Partial Thromboplast Time 28.6 26.3-35.5 SEC Magnesium Level 1.60 L 1.80-2.40 mg/dL Ammonia < 10 L 11-32 umol/L Thyroid Stimulating Hormone (TSH) 2.52 0.36-3.74 uIU/mL Serum Alcohol 4 0-10 mg/dL Red Blood Cell Morphology See comments Total Bilirubin 0.9 0.2-1.0 mg/dL Aspartate Amino Transf (AST/SGOT) 61 H 10-37 U/L Alanine Aminotransferase (ALT/SGPT) 39 12-78 U/L Alkaline Phosphatase 198 H 50-136 U/L Total Protein 4.6 L 6.0-8.3 g/dL Albumin 2.0 L 3.5-5.0 g/dL Test 07/13/25 11:23 Range/Units Urine Color LIGHT-YELLOW YELLOW Urine Appearance CLEAR CLEAR Urine pH 6.5 5.0-8.0 Urine Specific [place] 1.004 1.001-1.031 Urine Protein NEGATIVE NEGATIVE mg/dL Urine Glucose (UA) NEGATIVE NEGATIVE mg/dL Urine Ketones NEGATIVE NEGATIVE mg/dL Urine Occult Blood NEGATIVE NEGATIVE Urine Nitrate NEGATIVE NEGATIVE Urine Bilirubin NEGATIVE NEGATIVE mg/dL Urine Urobilinogen 0.2 0.2-1.0 mg/dL Urine Leukocyte Esterase NEGATIVE NEGATIVE Shaggy/uL Current Medications Medications (Trade) Dose Ordered Sig/Emeli Route PRN Reason Start Time Stop Time Status Last Admin Dose Admin Albumin Human 50 ml @ 0 mls/hr Q6H IV 07/13/25 17:00 07/14/25 17:00 07/14/25 05:41 100 MLS/HR Allopurinol (ZYLOprim 100MG) 100 mg DAILY PO 07/14/25 09:00 08/13/25 08:59 Aspirin (Aspirin 81mg Ec Tab) 81 mg DAILY PO 07/14/25 09:00 08/13/25 08:59 Chlordiazepoxide HCl (LIBrium 25 MG CAP) 25 mg Q4H PRN PO ALCOHOL WITHDRAWAL PROTOCOL 07/13/25 17:30 07/20/25 17:29 Folic Acid (FOLic ACID 1 MG TABLET) 1 mg DAILY PO 07/14/25 09:00 08/13/25 08:59 Furosemide (LASix 20MG TAB) 20 mg DAILY PO 07/15/25 09:00 08/14/25 08:59 Lorazepam (AtiVAN) 1 mg Q4H PRN IVP ALCOHOL WITHDRAWAL PROTOCOL 07/13/25 17:30 07/20/25 17:29 Losartan Potassium (CozAAR 50 mg TAB) 50 mg DAILY PO 07/14/25 09:00 08/13/25 08:59 Magnesium Sulfate 50 ml @ 0 mls/hr PROTOCOL IV 07/13/25 18:30 08/12/25 18:29 07/13/25 18:28 25 MLS/HR Metoprolol Succinate (TopROL XL) 100 mg DAILY PO 07/14/25 09:00 08/13/25 08:59 Multivitamins Therapeutic (Multivitamin Tablet) 1 tab DAILY PO 07/14/25 09:00 08/13/25 08:59 Pharmacy Profile Note (Pharmacy Communication) 1 each PROTOCOL PRN MISC ETOH Withdrawal Score changes 07/13/25 17:30 07/13/25 17:28 DC Potassium Chloride 100 ml @ 100 mls/hr AD PRN IV POTASSIUM PROTOCOL 07/13/25 18:30 08/12/25 18:29 Potassium Chloride (K-Dur/Klor-Con 20meq) 20 meq AD PRN PO POTASSIUM PROTOCOL 07/13/25 18:30 08/12/25 18:29 Potassium Chloride (KCl 10% Elixir 20meq/15ml) 20 meq AD PRN PO POTASSIUM PROTOCOL 07/13/25 18:30 08/12/25 18:29 Spironolactone (Aldactone 25mg) 50 mg DAILY PO 07/15/25 09:00 08/14/25 08:59 Thiamine HCl (Vitamin B-1) 100 mg Q24H IVP 07/13/25 17:00 08/12/25 16:59 07/13/25 18:41 100 MG Thiamine HCl (Vitamin B-1) 100 mg Q24H IVP 07/13/25 17:00 07/13/25 17:20 DC DIAGNOSTICS / RADIOLOGY: [place] [id number] [id number] IMAGING REPORT Signed PATIENT: LIBORIO GAYLE MR#: [id number] : 1965 SEX: M AGE: 60 LOCATION: [facility] ORDER [id number] STATUS: REG REPORT#: [id number] SERVICE 1356 REASON: RIGHT UPPER QUADRANT PAIN/ELEVATED LFTS ORDERING PHYSICIAN: ZITA BECERRA PROCEDURE: ABDRUQLTD - US ABDOMINAL RUQ\LTD EXAM: US Abdomen, Right Upper Quadrant. CLINICAL HISTORY: RIGHT UPPER QUADRANT PAIN/ELEVATED LFTS TECHNIQUE: Right upper quadrant sonography performed with image documentation. COMPARISON: Study dated 04/23/20. FINDINGS: LIVER: The liver is enlarged and measures approximately 18 cm. Coarse hepatic echotexture. A focal, rounded hyperechoic area( series 1, image 11 ) measuring 1.5 cm is visualized along the liver parenchyma. Further evaluation with CT triple phase abdomen and pelvis is recommended. Mild ascites is present. GALLBLADDER: The gallbladder appears contracted. Gallbladder wall thickness measures approximately 3 mm. No gallstones are evident. COMMON BILE DUCT: Measures approximately 4 mm. No biliary dilatation. PANCREAS: The pancreas is obscured by overlying bowel gas and is not adequately visualized.RIGHT KIDNEY: The right kidney measures 10.2 x 4.9 x 4.9 cm. Normal renal contours. No renal mass or calculus. No hydronephrosis. IMPRESSION: 1. Enlarged liver with coarse echotexture, suggestive of chronic liver disease. 2. 1.5 cm focal hyperechoic liver lesion, further evaluation with CT triple phase abdomen and pelvis recommended. 3. Mild ascites. /[place] DICTATED BY: EARLENE NANCE MD DATE: 07/13/251603 ELECTRONICALLY SIGNED BY: EARLENE NANCE MD DATE: 07/13/251603 [address] [place] [id number] IMAGING REPORT Signed PATIENT: LIBORIO GAYLE MR#: [id number] : 1965 SEX: M AGE: 60 LOCATION: [facility] ORDER 25 STATUS: ADM IN REPORT#: [id number] SERVICE 21 REASON: PLS PERFORM CT TRIPLE PHASE TO ASSESS FOR LIVER LESION, HX OF ALCOHOL USE ORDERING PHYSICIAN: MATHIEU BRANTLEY MD PROCEDURE: ABD PW 3PH - CT ABD/PEL WWO 3 PHASE EXAMINATION: CT Abdomen and Pelvis without and with contrast. CLINICAL HISTORY: CT triple phase to assess for liver lesion, history of alcohol use. TECHNIQUE: Multiple contiguous axial CT images were obtained through the abdomen and pelvis following the administration of intravenous contrast. Coronal and sagittal reconstructions were also obtained. COMPARISON: Prior CT abdomen and pelvis on 04/23/2020 FINDINGS: The included chest is within normal limits. The liver is enlarged, measuring 18 cm. The liver is nodular in contour with uniform decreased density, a prominent caudate lobe, and a prominent portal vein. There is a non-enhancing hypodense lesion in segment V measuring 0.8 x 1.0 cm. The gallbladder, spleen, pancreas, adrenal glands and kidneys appear within normal limits. Bowel loops are normal in caliber without evidence of obstruction, ileus, or obvious bowel wall thickening. There is a small umbilical hernia. The urinary bladder is well distended with normal wall thickening. The Prostate is normal in caliber. Both seminal vesicles are normal. There is moderate ascites. No lymphadenopathy. The opacified abdominal and pelvic vessels are patent. There are atheromatous wall calcification of the aorta and iliac arteries. No acute or suspicious osseous abnormality. There are multilevel mild degenerative spondylotic changes of the spine. IMPRESSION: Cirrhotic liver with fatty infiltration. Non-enhancing hypodense lesion in segment V of the liver cyst. No suspicious hepatic lesions. Moderate ascites. 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 Sodium today 129. Nephrology on board Decompensated Chronic Liver Disease with ascites, POA Chronic Alcoholic Hepatitis, POA Abdominal ultrasound revealed enlarged liver due to chronic liver disease, 1.5 cm focal hyperechoic lesion CT abdomen pelvis3 phase revealed chronic liver with fatty infiltration, non enhancing hypodense lesion in segment 5 of liver-cyst. No suspicious hepatic lesions. Moderate ascites. patient started on IV Albumin 25 g q6h x 24 hours Patient was started on Aldactone 50 mg daily, Lasix 20 mg daily Patient is currently on 1.2 L fluid restriction Patient currently on CIWA protocol. GI on board Hx of HTN, POA On presentation blood pressure 147/83 Patient was started on home medications losartan 50 mg daily, metoprolol 100 mg daily We will trend blood pressure regularly GI prophylaxis with Pepcid DVT prophylaxis with SCDs ATTESTATION BY PHYSICIAN I have seen and examined the patient. I reviewed the documentation, medical decision making, and treatment plan as noted by the resident physician above. I agree with the findings and plan of care. GARY BUENO MD, ADIL SHAH QUADRI MD Jul 14, 2025 10:57
[2025-07-14 12:29] LABS: HEPATITIS B SURFACE ANTIBODY Negative (Reactive)
--- NOTE | 2025-07-14 14:38 | NUR ---
SPOKE WITH PAT AT THIS TIME TO GIVE REPORT.
--- NOTE | 2025-07-14 14:55 | NUR ---
PT ARRIVED TO [facility] VIA HOSPITAL BED. PT AOX3. PT DENIES ANY PAIN AT THE MOMENT. BED POSITION TO LOWEST POSITION CALL LIGHT WITH IN REACH
[2025-07-14] MEDS ORDERED: SILD20TA42 PO (15:00)
[2025-07-14 15:11] VITALS: BP 114/73; PULSE 80; RESP 18; TEMP 98.6
--- NOTE | 2025-07-14 18:15 | CONS ---
REFERRING PHYSICIAN: Dr. Hendricks. REASON FOR CONSULTATION: Renal failure and electrolyte abnormalities. HISTORY OF PRESENT ILLNESS: A 60-year-old male with a history of hypertension, hypercholesterolemia, and a history of gout. He presented to the hospital with abnormal labs. The patient was initially found to have a sodium of 123 mmol/L. The patient had been on hydrochlorothiazide as an outpatient. The patient also admits to significant alcohol use. CT scan did reveal evidence of cirrhosis, and he is being seen in consultation for all of the above. PAST MEDICAL HISTORY: Diabetes mellitus, hypertension, hypercholesterolemia. PAST SURGICAL HISTORY: EGD. SOCIAL HISTORY: He does admit to alcohol use. FAMILY HISTORY: There is no renal disease in family. ALLERGIES: There are no allergies. MEDICATIONS: Noted. REVIEW OF SYSTEMS: GENERAL: The patient is feeling weak and tired. HEENT: No change in vision. No change in hearing. CARDIOVASCULAR: No current chest pain or palpitations. PULMONARY: Denies any shortness of breath. GASTROINTESTINAL: The patient is tolerating diet. MUSCULOSKELETAL: Complaints of weakness. NEUROLOGIC: No history of seizures. No focal deficits. PSYCHIATRIC: No history of hallucinations or psychosis. ENDOCRINE: Diabetes mellitus. No history of thyroid disease. HEME: No history of anemia or malignancy. PHYSICAL EXAMINATION: VITAL SIGNS: Blood pressure 130/75, pulse 70s. GENERAL: He is a chronically ill male, older than appearing. HEENT: Head is atraumatic. Pupils equal, round, and reactive to light. Oropharynx is without exudate. Nares are clear. NECK: There is no JVP. There is no thyromegaly. No masses. CARDIOVASCULAR: Regular. There is no S3 or S4 gallop. LUNGS: Coarse with equal thoracic movement. ABDOMEN: Soft, nondistended, nontender. EXTREMITIES: Reveal no clubbing, no cyanosis. NEUROLOGICAL: He is awake, alert, and oriented. SKIN: Reveals no rash or nodules. BACK: No CVA tenderness. There are no back deformities. LABORATORY DATA: Sodium is 129, BUN 14, creatinine is 1, chloride is 96, albumin is 2. Urinalysis is fairly unremarkable. Hemoglobin is 13, hematocrit 33. IMPRESSION: * [id number] renal failure. * Hyponatremia. * Cirrhosis. * Volume overload. PLAN: The patient presents with significant hyponatremia. Hydrochlorothiazide has been discontinued. We will need to discontinue the medication upon discharge to home. The patient with evidence of cirrhosis on exam. The patient will be placed on a fluid restriction. Urine electrolytes are all pending, and we will continue to follow the patient closely. The patient has been instructed in regards to cessation of all alcohol use upon discharge. We will continue to follow closely. All labs will be repeated in the morning. Once the patient's serum sodium rises above 130 mL/L, the patient can safely be discharged from a renal standpoint. TID: [id number] RECEIPT: [id number]
[2025-07-14 20:00] VITALS: BP 135/111; PULSE 86; RESP 17; TEMP 98.1; O2SAT 99
[2025-07-15] VITALS: BP 128/65; PULSE 85; RESP 16; TEMP 97.8
[2025-07-15 04:00] VITALS: BP 121/83; PULSE 82; RESP 16; TEMP 97.9
[2025-07-15 04:37] LABS: NUCLEATED RED BLOOD CELLS 0.0 % (0.0-0.19); PLATELET COUNT (AUTO) 177.0 K/uL (130-400); RED BLOOD CELL COUNT(AUTO) 3.88 MIL/uL (4.50-6.20); RED CELL DISTRIBUTION WIDTH 12.6 % (11.0-15.5); WHITE BLOOD COUNT (AUTO) 4.5 K/uL (4.8-10.8)
[2025-07-15 04:49] LABS: ASPARTATE AMINOTRANSFERASE 44.0 U/L (10-37); CREATININE 1.0 mg/dL (0.5-1.3); GLOMERULAR FILTR. RATE CALC 87.0 mL/min (>90); GLUCOSE,RANDOM 103.0 mg/dL (70-105); SODIUM SERUM 131.0 mmol/L (136-145); TOTAL PROTEIN, SERUM 4.4 g/dL (6.0-8.3); UREA NITROGEN, BLOOD 17.0 mg/dL (7-18)
[2025-07-15 08:00] VITALS: BP 136/77; PULSE 81; RESP 16; TEMP 97.9
[2025-07-15 09:15] VITALS: O2SAT 100
[2025-07-15] MEDS: SPIRONOLACTONE 25 MG TAB PO SCH (09:17)
--- NOTE | 2025-07-15 09:27 | CONS ---
GASTROENTEROLOGY CONSULTATION NOTE Date of Consultation: Jul 15, 2025 Time of Consultation: 09:17 History of Present Illness: [ This is a 60-year-old male patient past medical history for hypertension, hyperlipidemia, chronic alcoholism, obesity, and gout, who was sent in from [facility] Familiar with complaints of having abnormal labs. Patient denied having any complaints. We were consulted for abnormal ultrasound. Patient's WBC of 4.5 today hemoglobin 12.5, platelets 177. Initial chemistries significant for sodium of 121, has trended up to 131. Initial chloride of 90 has since trended up to 100. Total bilirubin of 0.9, AST 61, ALT 39, alkaline phosphatase of 198, total protein 4.6, albumin 2.0. AFP of less than 1.8. CEA 2.6. TSH 2.52. PT and INR normal. Serum alcohol less than four. Acute hepatitis panel negative, HIV negative. Abdominal ultrasound showing enlarged liver with coarse echotexture, suggestive of chronic liver disease. 1.5 cm focal hyperechoic liver lesion further evaluation with CT triple phase abdomen and pelvis r ecommended. Mild ascites. Triple phase CT of abdomen and pelvis with and without contrast showing cirrhotic liver with fatty infiltration, nonenhancing hypodense lesion in segment five of the liver cyst. No suspicious hepatic lesions. Moderate ascites.] Review of Systems: CONSTITUTIONAL: No malaise or change in sensation of wellbeing. ENMT: No rhinorrhea, otorrhea, sinus pain, ear ache. CARDIOVASCULAR: No angina, palpitations, orthopnea or paroxysmal dyspnea. RESPIRATORY: No SOB. GASTROINTESTINAL: No abdominal pain, nausea, vomiting, diarrhea, hematemesis, melena or change in the patient's habitual bowel movements consistency/number. GENITOURINARY: No dysuria, hematuria or change in bladder continence. MUSCULOSKELETAL: No new muscle pain or decrease in muscular strength. No new joint swelling, redness or tenderness. SKIN: No new rash. Past Medical History: HTN, Gout, DM II, HLD PAST SURGICAL HISTORY: EGD and colonoscopy in 2019 PAST SOCIAL HISTORY: Denies any active smoking, drinks 3-4 beers daily, has been drinking since the , reports drinking care home, denies any illicit drug use FAMILY HISTORY: Denies pertinent family hx Coded Allergies: No Known Drug Allergies (Verified Allergy, Unknown, 11/27/15) Physical Exam: GEN: Awake, alert, oriented in person, time and place, and in no acute distress. HEENT: No sinus tenderness. Tympanic membranes were not examined. No rhinorrhea. Oral pharyngeal mucosa is pink, moist and within normal limits. Neck is supple with no cervical lymphadenopathy, thyromegaly or JVD. CHEST: Inspection, palpation and percussion of the chest were unremarkable. Lung auscultation revealed normal breath sounds bilaterally. CARDIAC: PMI is within normal limits. Heart sounds are regular. Normal S1, S2. No gallop or murmur. ABD: Soft, non-tender and not distended. No peritoneal signs on palpation. No organomegaly. Normal bowel sounds. EXT: No cyanosis or clubbing. No edema. SKIN: Intact. No rashes. JOINTS: No evidence of synovitis or acute arthritis. NEURO: Alert and oriented to name, place and person. Cranial nerve examination is unremarkable. No focal motor deficits. Normal speech. Gait is normal. Strength is normal. Vital Sign (Last 24 Hours) 07/14/25 07/15/25 20:00 04:00 Temp 97.9 Pulse 82 Resp 16 B/P (MAP) 121/83 Pulse Ox 98 O2 Delivery Room Air O2 Flow Rate 0 FiO2 21 Intake & Output (last 24hrs) 07/14/25 07/14/25 07/15/25 15:00 23:00 07:00 Intake Total 480 ml Balance 480 ml Laboratory: [ ] Laboratory: Test 07/15/25 04:18 07/14/25 14:47 07/14/25 07:06 07/13/25 20:17 Range/Units White Blood Count 4.5 L 4.8-10.8 K/uL Red Blood Count 3.88 L 4.50-6.20 MIL/uL Hemoglobin 12.5 L 14.0-18.0 g/dL Hematocrit 35.8 L 42-54 % Mean Corpuscular Volume 92.3 79-99 fL Mean Corpuscular Hemoglobin 32.2 27.0-33.0 pg Mean Corpuscular Hemoglobin Concent 34.9 32.0-36.0 g/dL Red Cell Distribution Width 12.6 11.0-15.5 % Platelet Count 177 130-400 K/uL Mean Platelet Volume 9.2 7.5-10.5 fL Nucleated Red Blood Cells 0.0 0.0-0.19 % Sodium Level 131 L 136-145 mmol/L Potassium Level 3.7 3.5-5.1 mmol/L Chloride Level 100 L 101-111 mmol/L Carbon Dioxide Level 26 21-32 mmol/L Blood Urea Nitrogen 17 7-18 mg/dL Creatinine 1.0 0.5-1.3 mg/dL Glomerular Filtration Rate Calc 87 >90 mL/min Random Glucose 103 70-105 mg/dL Total Calcium 7.7 L 8.5-10.1 mg/dL Magnesium Level 1.70 L 1.80-2.40 mg/dL Total Bilirubin 0.8 0.2-1.0 mg/dL Aspartate Amino Transf (AST/SGOT) 44 H 10-37 U/L Alanine Aminotransferase (ALT/SGPT) 28 12-78 U/L Alkaline Phosphatase 154 H 50-136 U/L Ammonia 12 11-32 umol/L Total Protein 4.4 L 6.0-8.3 g/dL Albumin 2.1 L 3.5-5.0 g/dL Urine Random Sodium 71 40-220 mmol/l Immature Granulocyte % (Auto) 0.8 0-1 % Neutrophils (%) (Auto) 77.2 H 40.0-77.0 % Lymphocytes (%) (Auto) 8.2 L 21.0-51.0 % Monocytes (%) (Auto) 11.0 3.0-13.0 % Eosinophils (%) (Auto) 2.0 0.0-8.0 % Basophils (%) (Auto) 0.8 0.0-5.0 % Neutrophils # (Auto) 3.9 1.8-7.7 K/uL Lymphocytes # (Auto) 0.4 L 1.0-4.8 K/uL Monocytes # (Auto) 0.6 0.1-1.0 K/uL Eosinophils # (Auto) 0.10 0.00-0.70 K/uL Basophils # (Auto) 0.04 0.00-0.20 K/uL Absolute Immature Granulocyte (auto 0.04 0-1 K/uL White Cell Morphology Comment See comments Hepatitis B Surface Antigen. Non-Reactive Nonreactive Hepatitis B Surface Antibody. Negative L Reactive Hepatitis C Antibody Non-Reactive Nonreactive HIV (1&2) Antibody Non-Reactive Negative HIV P24 Antigen, Qualitative Non-Reactive Negative Urine Osmolality 149 50-1200 mOsm/kg Urine Random Creatinine 9.59 L 30-135 mg/dL Test 07/13/25 17:09 07/13/25 16:32 07/13/25 11:27 07/13/25 11:23 Range/Units Prothrombin Time 10.8 9.6-11.6 SEC Prothromb Time International Ratio 1.02 0.85-1.15 Activated Partial Thromboplast Time 28.6 26.3-35.5 SEC Thyroid Stimulating Hormone (TSH) 2.52 0.36-3.74 uIU/mL Serum Alcohol 4 0-10 mg/dL Serum Osmolality 251 L 278-305 mOsm/kg Tumor Marker Alpha Fetoprotein <1.8 0.0-8.4 ng/mL Carcinoembryonic Antigen 2.6 0.0-4.7 ng/mL Red Blood Cell Morphology See comments Urine Color LIGHT-YELLOW YELLOW Urine Appearance CLEAR CLEAR Urine pH 6.5 5.0-8.0 Urine Specific Firestone 1.004 1.001-1.031 Urine Protein NEGATIVE NEGATIVE mg/dL Urine Glucose (UA) NEGATIVE NEGATIVE mg/dL Urine Ketones NEGATIVE NEGATIVE mg/dL Urine Occult Blood NEGATIVE NEGATIVE Urine Nitrate NEGATIVE NEGATIVE Urine Bilirubin NEGATIVE NEGATIVE mg/dL Urine Urobilinogen 0.2 0.2-1.0 mg/dL Urine Leukocyte Esterase NEGATIVE NEGATIVE Shaggy/uL Current Medications Medications (Trade) Dose Ordered Sig/Emeli Route PRN Reason Start Time Stop Time Status Last Admin Dose Admin Albumin Human 50 ml @ 0 mls/hr Q6H IV 07/13/25 17:00 07/14/25 17:00 DC 07/14/25 17:56 100 MLS/HR Allopurinol (ZYLOprim 100MG) 100 mg DAILY PO 07/14/25 09:00 08/13/25 08:59 07/14/25 09:00 100 MG Aspirin (Aspirin 81mg Ec Tab) 81 mg DAILY PO 07/14/25 09:00 08/13/25 08:59 07/14/25 10:56 81 MG Chlordiazepoxide HCl (LIBrium 25 MG CAP) 25 mg Q4H PRN PO ALCOHOL WITHDRAWAL PROTOCOL 07/13/25 17:30 07/20/25 17:29 Folic Acid (FOLic ACID 1 MG TABLET) 1 mg DAILY PO 07/14/25 09:00 08/13/25 08:59 07/14/25 10:57 1 MG Furosemide (LASix 20MG TAB) 20 mg DAILY PO 07/15/25 09:00 08/14/25 08:59 Lorazepam (AtiVAN) 1 mg Q4H PRN IVP ALCOHOL WITHDRAWAL PROTOCOL 07/13/25 17:30 07/20/25 17:29 Losartan Potassium (CozAAR 50 mg TAB) 50 mg DAILY PO 07/14/25 09:00 08/13/25 08:59 07/14/25 10:57 50 MG Magnesium Sulfate 50 ml @ 0 mls/hr PROTOCOL IV 07/13/25 18:30 08/12/25 18:29 07/13/25 18:28 25 MLS/HR Metoprolol Succinate (TopROL XL) 100 mg DAILY PO 07/14/25 09:00 08/13/25 08:59 07/14/25 10:56 100 MG Multivitamins Therapeutic (Multivitamin Tablet) 1 tab DAILY PO 07/14/25 09:00 08/13/25 08:59 07/14/25 10:56 1 TAB Pharmacy Profile Note (Pharmacy Communication) 1 each PROTOCOL PRN MISC ETOH Withdrawal Score changes 07/13/25 17:30 07/13/25 17:28 DC Potassium Chloride 100 ml @ 100 mls/hr AD PRN IV POTASSIUM PROTOCOL 07/13/25 18:30 08/12/25 18:29 Potassium Chloride (K-Dur/Klor-Con 20meq) 20 meq AD PRN PO POTASSIUM PROTOCOL 07/13/25 18:30 08/12/25 18:29 Potassium Chloride (KCl 10% Elixir 20meq/15ml) 20 meq AD PRN PO POTASSIUM PROTOCOL 07/13/25 18:30 08/12/25 18:29 Spironolactone (Aldactone 25mg) 50 mg DAILY PO 07/15/25 09:00 08/14/25 08:59 Thiamine HCl (Vitamin B-1) 100 mg Q24H IVP 07/13/25 17:00 08/12/25 16:59 07/14/25 17:56 100 MG Thiamine HCl (Vitamin B-1) 100 mg Q24H IVP 07/13/25 17:00 07/13/25 17:20 DC Diagnostics / Radiology: [COPY/PASTE HERE IF NO REPORTS PLEASE DELETE SECTION] Assessment: [Abnormal findings on diagnostic imaging of other part of liver and biliary tract Hepatomegaly Ascites Hypertension Chronic Alcoholism ] Plan: Case discussed with Dr. Langford [No GI endoscopic recommended at this time Liver Serologies ordered Recommend paracentesis for moderate ascites on imaging. Recommend patient f/u at [facility] for further evaluation and management. Appointment scheduled for 07/28/2025 at [facility] Please call with questions, concerns, and change in clinical status. Thank you for this consult. ] JASON ZARAGOZA Jul 15, 2025 09:27
[2025-07-15 10:21] LABS: PHOSPHORUS 2.2 mg/dL (2.5-4.9)
[2025-07-15 10:38] LABS: % IRON SATURATION 24.6 % (30-44); IRON, SERUM 41.0 mcg/dL (65-175)
[2025-07-15 11:06] LABS: TOTAL VOLUME URINE 24HR 3100.0; URINE COLLECTION PERIOD 24.0
[2025-07-15 11:07] LABS: SODIUM TIMED URINE 59.0; SODIUM URINE 24HR CALCULATION 182.9
[2025-07-15 12:00] VITALS: BP 108/62; PULSE 70; RESP 16; TEMP 98.3
[2025-07-15 12:47] LABS: ALBUMIN,BODY FLUID 1.0 g/dL
[2025-07-15 12:53] LABS: TOTAL PROTEIN,BODY FLUID < 2.0 g/dL
[2025-07-15] MEDS ORDERED: SPIR50TA5 PO (13:00)
[2025-07-15] MEDS ORDERED: FURO20TA6 PO (13:00)
--- NOTE | 2025-07-15 13:26 | HMCIMG ---
US ABDOMINAL PARACENTESIS IR REASON: ASCITES This procwdure was done by Dr Ashley Mckay PGY2 with Dr. Rodrigez TECHNIQUE: Paracentesis was performed with ultrasound guidance. The puncture site was selected in the Right lower quadrant and overlying skin prepped and draped in a sterile fashion. 1% Xylocaine infiltration was performed. Catheter was placed in the fluid using trocar technique. 2.4L were removed. Fluid sample was submitted for laboratory evaluation. The patient showed no evidence of complication during the procedure. Patint tolerated the procedure well. IMPRESSION: 1. Ultrasound-guided paracentesis.
[2025-07-15 13:33] LABS: APPEARANCE BODY FLUID SLIGHTLY CLOUDY (CLEAR); BODY FLUID RBC 635 /cu. mm.; BODY FLUID WBC 652 /cu. mm.; COLOR,BODY FLUID LT YELLOW (LT YELLOW); SPECIMENTYPE,BODY FLUID ASCITES; TOTAL VOLUME,BODY FLUID 2400 mL
[2025-07-15 13:47] LABS: BF LYMPHOCYTE 21 %; BF MACROPHAGE 3; BF MESOTHELIAL 15 %; BF MONOCYTE 9 %; BF NEUTROPHIL 52.0 %; BF TOTAL CELLS COUNTED 100
--- NOTE | 2025-07-15 14:37 | DS ---
Discharge Summary Hospital Course Summary: HISTORY OF PRESENT ILLNESS: This is a 60 year old male with PMHx significant for HTN, HLD, Chronic alcoholism, Obesity, Gout who presented to the Hospital for further evaluation of abnormal labs. Patient had routine labs performed at PCP's office where he was found to have Sodium of 123 and Chloride of 89. Patient currently denies any headache, memory issues, nausea or vomiting. He reports that he has hx of chronic lower extremity edema for which he takes HCTZ 12.5 mg bid. He has also noticed that recently he has been having progressive abdominal distension, He has also noticed a reducible umbilical hernia involving the abdomen. He denies any bleeding issues. Reports drinking beer chronically since his 20's. Used to drink heavily and currently drinks about 3-4 beers daily. Denies significant hx of alcohol withdrawals. Reports having hx of HTN and is maintained on outpatient tx with Losartan 50 mg daily, Metoprolol succinate 100 mg daily. Patient on presentation to the hospital was found to have sodium of 121 and abnormal LFT's with AST of 61, ALT of 39 and Alk Phos of 198. Patient will be admitted to cardiac telemetry floor. We will stop HCTZ which is likely contributing to the Hyponatremia. Patient with signs of decompensated of liver disease with signs of ascites and chronic alcoholic hepatitis. Plan to rule out cirrhosis of the liver due to chronic alcoholism and patient will undergo CT triple phase for further evaluation of 1.5 cm focal hyperechoic liver lesion noted on abdominal US. 07/14/2025: Patient was seen and evaluated this morning, family at bedside. He is awake, alert, oriented x3, saturating 100% at room air. Patient said that he is doing good, denies any new or worsening symptoms. Morning labs revealed white count 5.1, H&H 13.3, 37.7, sodium 129, potassium 3.8, magnesium 1.6. Abdo los ultrasound revealed enlarged liver due to chronic liver disease, 1.5 cm focal hyperechoic lesion. CT abdomen 3 phase cirrhotic liver with fatty infiltration, nonenhancing hypodense lesion in segment 5 of the liver -cyst. No suspicious hepatic lesions. Patient currently on 1.2 L fluid restriction, we will replace magnesium per protocol. Patient was started on Aldactone 50 mg daily, Lasix 20 mg daily. Nephrology, GI on board for further evaluation. On 07/15/2025 sodium improved to 131, patient underwent therapeutic paracentesis as recommended by GI. 2.4 L fluid was removed, peritoneal fluid analysis showed no signs of SBP. Patient was cleared by GI, Nephrology for discharge to home and outpatient follow up with GI and primary care provider. Patient was hemodynamically stable to discharge home with oral Aldactone 50 mg daily, oral Lasix 20mg daily. Patient was advised to follow up outpatient with primary care provider, GI. Was educated about all the red flag signs/symptoms and asked to return to ED if he develops any Housing Officer(s): CONSULTATION REPORT Name: LIBORIO GAYLE Acct: [id number] MR: [id number] : 1965 Admit Date: 07/13/25 JASON ZARAGOZA [facility] [address] [place] [id number] GASTROENTEROLOGY CONSULTATION NOTE Date of Consultation: Jul 15, 2025 Time of Consultation: 09:17 History of Present Illness: [ This is a 60-year-old male patient past medical history for hypertension, hyperlipidemia, chronic alcoholism, obesity, and gout, who was sent in from [facility] Familiar with complaints of having abnormal labs. Patient denied having any complaints. We were consulted for abnormal ultrasound. Patient's WBC of 4.5 today hemoglobin 12.5, platelets 177. Initial chemistries significant for sodium of 121, has trended up to 131. Initial chloride of 90 has since trended up to 100. Total bilirubin of 0.9, AST 61, ALT 39, alkaline phosphatase of 198, total protein 4.6, albumin 2.0. AFP of less than 1.8. CEA 2.6. TSH 2.52. PT and INR normal. Serum alcohol less than four. Acute hepatitis panel negative, HIV negative. Abdominal ultrasound showing enlarged liver with coarse echotexture, suggestive of chronic liver disease. 1.5 cm focal hyperechoic liver lesion further evaluation with CT triple phase abdomen and pelvis recommended. Mild ascites. Triple phase CT of abdomen and pelvis with and without contrast showing cirrhotic liver with fatty infiltration, nonenhancing hypodense lesion in segment five of the liver cyst. No suspicious hepatic lesions. Moderate ascites.] Review of Systems: CONSTITUTIONAL: No malaise or change in sensation of wellbeing. ENMT: No rhinorrhea, otorrhea, sinus pain, ear ache. CARDIOVASCULAR: No angina, palpitations, orthopnea or paroxysmal dyspnea. RESPIRATORY: No SOB. GASTROINTESTINAL: No abdominal pain, nausea, vomiting, diarrhea, hematemesis, melena or change in the patient's habitual bowel movements consistency/number. GENITOURINARY: No dysuria, hematuria or change in bladder continence. MUSCULOSKELETAL: No new muscle pain or decrease in muscular strength. No new joint swelling, redness or tenderness. SKIN: No new rash. Past Medical History: HTN, Gout, DM II, HLD PAST SURGICAL HISTORY: EGD and colonoscopy in 2019 PAST SOCIAL HISTORY: Denies any active smoking, drinks 3-4 beers daily, has been drinking since the , reports drinking watermaster, denies any illicit drug use FAMILY HISTORY: Denies pertinent family hx Coded Allergies: No Known Drug Allergies (Verified Allergy, Unknown, 11/27/15) Physical Exam: GEN: Awake, alert, oriented in person, time and place, and in no acute distress. HEENT: No sinus tenderness. Tympanic membranes were not examined. No rhinorrhea. Oral pharyngeal mucosa is pink, moist and within normal limits. Neck is supple with no cervical lymphadenopathy, thyromegaly or JVD. CHEST: Inspection, palpation and percussion of the chest were unremarkable. Lung auscultation revealed normal breath sounds bilaterally. CARDIAC: PMI is within normal limits. Heart sounds are regular. Normal S1, S2. No gallop or murmur. ABD: Soft, non-tender and not distended. No peritoneal signs on palpation. No organomegaly. Normal bowel sounds. EXT: No cyanosis or clubbing. No edema. SKIN: Intact. No rashes. JOINTS: No evidence of synovitis or acute arthritis. NEURO: Alert and oriented to name, place and person. Cranial nerve examination is unremarkable. No focal motor deficits. Normal speech. Gait is normal. Strength is normal. Vital Sign (Last 24 Hours) 07/14/25 07/15/25 20:00 04:00 Temp 97.9 Pulse 82 Resp 16 B/P (MAP) 121/83 Pulse Ox 98 O2 Delivery Room Air O2 Flow Rate 0 FiO2 21 Intake & Output (last 24hrs) 07/14/25 07/14/25 07/15/25 15:00 23:00 07:00 Intake Total 480 ml Balance 480 ml Laboratory: [ ] Laboratory: Test 07/15/25 04:18 07/14/25 14:47 07/14/25 07:06 07/13/25 20:17 Range/Units White Blood Count 4.5 L 4.8-10.8 K/uL Red Blood Count 3.88 L 4.50-6.20 MIL/uL Hemoglobin 12.5 L 14.0-18.0 g/dL Hematocrit 35.8 L 42-54 % Mean Corpuscular Volume 92.3 79-99 fL Mean Corpuscular Hemoglobin 32.2 27.0-33.0 pg Mean Corpuscular Hemoglobin Concent 34.9 32.0-36.0 g/dL Red Cell Distribution Width 12.6 11.0-15.5 % Platelet Count 177 130-400 K/uL Mean Platelet Volume 9.2 7.5-10.5 fL Nucleated Red Blood Cells 0.0 0.0-0.19 % Sodium Level 131 L 136-145 mmol/L Potassium Level 3.7 3.5-5.1 mmol/L Chloride Level 100 L 101-111 mmol/L Carbon Dioxide Level 26 21-32 mmol/L Blood Urea Nitrogen 17 7-18 mg/dL Creatinine 1.0 0.5-1.3 mg/dL Glomerular Filtration Rate Calc 87 >90 mL/min Random Glucose 103 70-105 mg/dL Total Calcium 7.7 L 8.5-10.1 mg/dL Magnesium Level 1.70 L 1.80-2.40 mg/dL Total Bilirubin 0.8 0.2-1.0 mg/dL Aspartate Amino Transf (AST/SGOT) 44 H 10-37 U/L Alanine Aminotransferase (ALT/SGPT) 28 12-78 U/L Alkaline Phosphatase 154 H 50-136 U/L Ammonia 12 11-32 umol/L Total Protein 4.4 L 6.0-8.3 g/dL Albumin 2.1 L 3.5-5.0 g/dL Urine Random Sodium 71 40-220 mmol/l Immature Granulocyte % (Auto) 0.8 0-1 % Neutrophils (%) (Auto) 77.2 H 40.0-77.0 % Lymphocytes (%) (Auto) 8.2 L 21.0-51.0 % Monocytes (%) (Auto) 11.0 3.0-13.0 % Eosinophils (%) (Auto) 2.0 0.0-8.0 % Basophils (%) (Auto) 0.8 0.0-5.0 % Neutrophils # (Auto) 3.9 1.8-7.7 K/uL Lymphocytes # (Auto) 0.4 L 1.0-4.8 K/uL Monocytes # (Auto) 0.6 0.1-1.0 K/uL Eosinophils # (Auto) 0.10 0.00-0.70 K/uL Basophils # (Auto) 0.04 0.00-0.20 K/uL Absolute Immature Granulocyte (auto 0.04 0-1 K/uL White Cell Morphology Comment See comments Hepatitis B Surface Antigen. Non-Reactive Nonreactive Hepatitis B Surface Antibody. Negative L Reactive Hepatitis C Antibody Non-Reactive Nonreactive HIV (1&2) Antibody Non-Reactive Negative HIV P24 Antigen, Qualitative Non-Reactive Negative Urine Osmolality 149 50-1200 mOsm/kg Urine Random Creatinine 9.59 L 30-135 mg/dL Test 07/13/25 17:09 07/13/25 16:32 07/13/25 11:27 07/13/25 11:23 Range/Units Prothrombin Time 10.8 9.6-11.6 SEC Prothromb Time International Ratio 1.02 0.85-1.15 Activated Partial Thromboplast Time 28.6 26.3-35.5 SEC Thyroid Stimulating Hormone (TSH) 2.52 0.36-3.74 uIU/mL Serum Alcohol 4 0-10 mg/dL Serum Osmolality 251 L 278-305 mOsm/kg Tumor Marker Alpha Fetoprotein <1.8 0.0-8.4 ng/mL Carcinoembryonic Antigen 2.6 0.0-4.7 ng/mL Red Blood Cell Morphology See comments Urine Color LIGHT-YELLOW YELLOW Urine Appearance CLEAR CLEAR Urine pH 6.5 5.0-8.0 Urine Specific [place] 1.004 1.001-1.031 Urine Protein NEGATIVE NEGATIVE mg/dL Urine Glucose (UA) NEGATIVE NEGATIVE mg/dL Urine Ketones NEGATIVE NEGATIVE mg/dL Urine Occult Blood NEGATIVE NEGATIVE Urine Nitrate NEGATIVE NEGATIVE Urine Bilirubin NEGATIVE NEGATIVE mg/dL Urine Urobilinogen 0.2 0.2-1.0 mg/dL Urine Leukocyte Esterase NEGATIVE NEGATIVE Shaggy/uL Current Medications Medications (Trade) Dose Ordered Sig/Emeli Route PRN Reason Start Time Stop Time Status Last Admin Dose Admin Albumin Human 50 ml @ 0 mls/hr Q6H IV 07/13/25 17:00 07/14/25 17:00 DC 07/14/25 17:56 100 MLS/HR Allopurinol (ZYLOprim 100MG) 100 mg DAILY PO 07/14/25 09:00 08/13/25 08:59 07/14/25 09:00 100 MG Aspirin (Aspirin 81mg Ec Tab) 81 mg DAILY PO 07/14/25 09:00 08/13/25 08:59 07/14/25 10:56 81 MG Chlordiazepoxide HCl (LIBrium 25 MG CAP) 25 mg Q4H PRN PO ALCOHOL WITHDRAWAL PROTOCOL 07/13/25 17:30 07/20/25 17:29 Folic Acid (FOLic ACID 1 MG TABLET) 1 mg DAILY PO 07/14/25 09:00 08/13/25 08:59 07/14/25 10:57 1 MG Furosemide (LASix 20MG TAB) 20 mg DAILY PO 07/15/25 09:00 08/14/25 08:59 Lorazepam (AtiVAN) 1 mg Q4H PRN IVP ALCOHOL WITHDRAWAL PROTOCOL 07/13/25 17:30 07/20/25 17:29 Losartan Potassium (CozAAR 50 mg TAB) 50 mg DAILY PO 07/14/25 09:00 08/13/25 08:59 07/14/25 10:57 50 MG Magnesium Sulfate 50 ml @ 0 mls/hr PROTOCOL IV 07/13/25 18:30 08/12/25 18:29 07/13/25 18:28 25 MLS/HR Metoprolol Succinate (TopROL XL) 100 mg DAILY PO 07/14/25 09:00 08/13/25 08:59 07/14/25 10:56 100 MG Multivitamins Therapeutic (Multivitamin Tablet) 1 tab DAILY PO 07/14/25 09:00 08/13/25 08:59 07/14/25 10:56 1 TAB Pharmacy Profile Note (Pharmacy Communication) 1 each PROTOCOL PRN MISC ETOH Withdrawal Score changes 07/13/25 17:30 07/13/25 17:28 DC Potassium Chloride 100 ml @ 100 mls/hr AD PRN IV POTASSIUM PROTOCOL 07/13/25 18:30 08/12/25 18:29 Potassium Chloride (K-Dur/Klor-Con 20meq) 20 meq AD PRN PO POTASSIUM PROTOCOL 07/13/25 18:30 08/12/25 18:29 Potassium Chloride (KCl 10% Elixir 20meq/15ml) 20 meq AD PRN PO POTASSIUM PROTOCOL 07/13/25 18:30 08/12/25 18:29 Spironolactone (Aldactone 25mg) 50 mg DAILY PO 07/15/25 09:00 08/14/25 08:59 Thiamine HCl (Vitamin B-1) 100 mg Q24H IVP 07/13/25 17:00 08/12/25 16:59 07/14/25 17:56 100 MG Thiamine HCl (Vitamin B-1) 100 mg Q24H IVP 07/13/25 17:00 07/13/25 17:20 DC Diagnostics / Radiology: [COPY/PASTE HERE IF NO REPORTS PLEASE DELETE SECTION] Assessment: [Abnormal findings on diagnostic imaging of other part of liver and biliary tract Hepatomegaly Ascites Hypertension Chronic Alcoholism ] Plan: Case discussed with Dr. Langford [No GI endoscopic recommended at this time Liver Serologies ordered Recommend paracentesis for moderate ascites on imaging. Recommend patient f/u at [facility] for further evaluation and management. Appointment scheduled for 07/28/2025 at [facility] Please call with questions, concerns, and change in clinical status. Thank you for this consult. ] JASON ZARAGOZA Jul 15, 2025 09:27 Electronically Signed by: Electronically Co-Signed by: CONSULTATION REPORT Name: LIBORIO GAYLE Acct: [id number] MR: [id number] : 1965 Admit Date: 07/13/25 LOGAN AUSITN MD [address] [place] [id number] REFERRING PHYSICIAN: Dr. Hendricks. REASON FOR CONSULTATION: Renal failure and electrolyte abnormalities. HISTORY OF PRESENT ILLNESS: A 60-year-old male with a history of hypertension, hypercholesterolemia, and a history of gout. He presented to the hospital with abnormal labs. The patient was initially found to have a sodium of 123 mmol/L. The patient had been on hydrochlorothiazide as an outpatient. The patient also admits to significant alcohol use. CT scan did reveal evidence of cirrhosis, and he is being seen in consultation for all of the above. PAST MEDICAL HISTORY: Diabetes mellitus, hypertension, hypercholesterolemia. PAST SURGICAL HISTORY: EGD. SOCIAL HISTORY: He does admit to alcohol use. FAMILY HISTORY: There is no renal disease in family. ALLERGIES: There are no allergies. MEDICATIONS: Noted. REVIEW OF SYSTEMS: GENERAL: The patient is feeling weak and tired. HEENT: No change in vision. No change in hearing. CARDIOVASCULAR: No current chest pain or palpitations. PULMONARY: Denies any shortness of breath. GASTROINTESTINAL: The patient is tolerating diet. MUSCULOSKELETAL: Complaints of weakness. NEUROLOGIC: No history of seizures. No focal deficits. PSYCHIATRIC: No history of hallucinations or psychosis. ENDOCRINE: Diabetes mellitus. No history of thyroid disease. HEME: No history of anemia or malignancy. PHYSICAL EXAMINATION: VITAL SIGNS: Blood pressure 130/75, pulse 70s. GENERAL: He is a chronically ill male, older than appearing. HEENT: Head is atraumatic. Pupils equal, round, and reactive to light. Oropharynx is without exudate. Nares are clear. NECK: There is no JVP. There is no thyromegaly. No masses. CARDIOVASCULAR: Regular. There is no S3 or S4 gallop. LUNGS: Coarse with equal thoracic movement. ABDOMEN: Soft, nondistended, nontender. EXTREMITIES: Reveal no clubbing, no cyanosis. NEUROLOGICAL: He is awake, alert, and oriented. SKIN: Reveals no rash or nodules. BACK: No CVA tenderness. There are no back deformities. LABORATORY DATA: Sodium is 129, BUN 14, creatinine is 1, chloride is 96, albumin is 2. Urinalysis is fairly unremarkable. Hemoglobin is 13, hematocrit 33. IMPRESSION: * Hrbwi-je-zizcabk renal failure. * Hyponatremia. * Cirrhosis. * Volume overload. PLAN: The patient presents with significant hyponatremia. Hydrochlorothiazide has been discontinued. We will need to discontinue the medication upon discharge to home. The patient with evidence of cirrhosis on exam. The patient will be placed on a fluid restriction. Urine electrolytes are all pending, and we will continue to follow the patient closely. The patient has been instructed in regards to cessation of all alcohol use upon discharge. We will continue to follow closely. All labs will be repeated in the morning. Once the patient's serum sodium rises above 130 mL/L, the patient can safely be discharged from a renal standpoint. TID: [id number] RECEIPT: [id number] Electronically Signed by: Electronically Co-Signed by: Procedure(s): [facility] [address] [place] [address] IMAGING REPORT Signed PATIENT: LIBORIO GAYLE MR#: [id number] : 1965 SEX: M AGE: 60 LOCATION: [facility] ORDER [id number] STATUS: REG ER REPORT#: [id number] SERVICE 135 REASON: RIGHT UPPER QUADRANT PAIN/ELEVATED LFTS ORDERING PHYSICIAN: ZITA BECERRA PROCEDURE: ABDRUQLTD - US ABDOMINAL RUQ\LTD EXAM: US Abdomen, Right Upper Quadrant. CLINICAL HISTORY: RIGHT UPPER QUADRANT PAIN/ELEVATED LFTS TECHNIQUE: Right upper quadrant sonography performed with image documentation. COMPARISON: Study dated 04/23/20. FINDINGS: LIVER: The liver is enlarged and measures approximately 18 cm. Coarse hepatic echotexture. A focal, rounded hyperechoic area( series 1, image 11 ) measuring 1.5 cm is visualized along the liver parenchyma. Further evaluation with CT triple phase abdomen and pelvis is recommended. Mild ascites is present. GALLBLADDER: The gallbladder appears contracted. Gallbladder wall thickness measures approximately 3 mm. No gallstones are evident. COMMON BILE DUCT: Measures approximately 4 mm. No biliary dilatation. PANCREAS: The pancreas is obscured by overlying bowel gas and is not adequately visualized.RIGHT KIDNEY: The right kidney measures 10.2 x 4.9 x 4.9 cm. Normal renal contours. No renal mass or calculus. No hydronephrosis. IMPRESSION: 1. Enlarged liver with coarse echotexture, suggestive of chronic liver disease. 2. 1.5 cm focal hyperechoic liver lesion, further evaluation with CT triple phase abdomen and pelvis recommended. 3. Mild ascites. /[place] DICTATED BY: EARLENE NANCE MD DATE: 07/13/25 1604 ELECTRONICALLY SIGNED BY: EARLENE NANCE MD DATE: 07/13/25 1604 [facility] [address] [place], [place] [id number] IMAGING REPORT Signed PATIENT: LIBORIO GAYLE MR#: [id number] : 1965 SEX: M AGE: 60 LOCATION: [facility] ORDER 172 STATUS: ADM IN REPORT#: [id number] SERVICE 172 REASON: PLS PERFORM CT TRIPLE PHASE TO ASSESS FOR LIVER LESION, HX OF ALCOHOL USE ORDERING PHYSICIAN: MATHIEU HENDRICKS MD PROCEDURE: ABD PW 3PH - CT ABD/PEL WWO 3 PHASE EXAMINATION: CT Abdomen and Pelvis without and with contrast. CLINICAL HISTORY: CT triple phase to assess for liver lesion, history of alcohol use. TECHNIQUE: Multiple contiguous axial CT images were obtained through the abdomen and pelvis following the administration of intravenous contrast. Coronal and sagittal reconstructions were also obtained. COMPARISON: Prior CT abdomen and pelvis on 04/23/2020 FINDINGS: The included chest is within normal limits. The liver is enlarged, measuring 18 cm. The liver is nodular in contour with uniform decreased density, a prominent caudate lobe, and a prominent portal vein. There is a non-enhancing hypodense lesion in segment V measuring 0.8 x 1.0 cm. The gallbladder, spleen, pancreas, adrenal glands and kidneys appear within normal limits. Bowel loops are normal in caliber without evidence of obstruction, ileus, or obvious bowel wall thickening. There is a small umbilical hernia. The urinary bladder is well distended with normal wall thickening. The Prostate is normal in caliber. Both seminal vesicles are normal. There is moderate ascites. No lymphadenopathy. The opacified abdominal and pelvic vessels are patent. There are atheromatous wall calcification of the aorta and iliac arteries. No acute or suspicious osseous abnormality. There are multilevel mild degenerative spondylotic changes of the spine. IMPRESSION: Cirrhotic liver with fatty infiltration. Non-enhancing hypodense lesion in segment V of the liver cyst. No suspicious hepatic lesions. Moderate ascites. /[place] DICTATED BY: MÓNICA GLEASON MD DATE: 07/14/25841 ELECTRONICALLY SIGNED BY: MÓNICA GLEASON MD DATE: 07/14/25841 [place] [id number] [address] IMAGING REPORT Signed PATIENT: LIBORIO GAYLE MR#: [id number] : 1965 SEX: M AGE: 60 LOCATION: [facility] ORDER 4 STATUS: ADM IN REPORT#: [id number] SERVICE REASON: ASCITES ORDERING PHYSICIAN: JASON ZARAGOZA PROCEDURE: PARA ABD - US ABDOMINAL PARACENTESIS IR US ABDOMINAL PARACENTESIS IR REASON: ASCITES This procwdure was done by Dr Ashley Mckay PGY2 with Dr. Wright TECHNIQUE: Paracentesis was performed with ultrasound guidance. The puncture site was selected in the Right lower quadrant and overlying skin prepped and draped in a sterile fashion. 1% Xylocaine infiltration was performed. Catheter was placed in the fluid using trocar technique. 2.4L were removed. Fluid sample was submitted for laboratory evaluation. The patient showed no evidence of complication during the procedure. Patint tolerated the procedure well. IMPRESSION: 1. Ultrasound-guided paracentesis. DICTATED BY: JARVIS WRIGHT MD DATE: 07/15/25 130 ELECTRONICALLY SIGNED BY: JARVIS WRIGHT MD DATE: 07/15/25 132 Assessment/Plan: ASSESSMENT: Moderate to severe Hyponatremia, POA (Multifactorial 2/2 HCTZ use and Hypervolemic Hyponatremia) Decompensated Chronic Liver Disease with ascites, POA Chronic Alcoholic Hepatitis, POA r/o Cirrhosis of Liver likely Secondary to continuous churn buttermaker alcohol consumption, POA Hx of HCTZ use as outpatient, POA Chronic Alcoholism, POA 1.5 cm focal hyperechoic liver lesion noted on Abd US, POA Hx of HTN, POA HLD, POA DM II, POA Obesity, POA Discharge Instructions: Continue prescribed medications as advised; do not restart hydrochlorothiazide, as it caused low-sodium levels. Follow a low-salt diet and restrict fluids (1.5 L) as instructed to prevent fluid buildup. The paracentesis site clean and dry; mild leakage can occur-report persistent soaking. Avoid alcohol completely and follow up with GI/primary care for labs Monitor daily weight and abdominal girth; rapid increases. Red flags: Seek immediate care for fever, worsening abdominal pain/distention, fusion, vomiting blood/black stools, shortness of breath, or severe weakness. New medications: Take furosemide 20 mg 1 tablet daily for 30 days. Take Aldactone 50 mg 1 tablet daily for 30 days. Continued medications: Continue all your home medications except for hydrochlorothiazide. Discontinued medications: Hydrochlorothiazide 12.5 mg Please follow up with your PCP in 1 week. Please follow up with GI outpatient in 2 weeks. Home Medications: Reported Medications Sildenafil Citrate (Sildenafil) 20 Mg Tablet, 100 MG PO AD, TAB 07/14/25 Pravastatin Sodium (Pravastatin Sodium) 20 Mg Tablet, 1 TAB PO HS for 30 Days, #30 TAB 0 Refills 07/13/25 Allopurinol (Allopurinol) 100 Mg Tablet, 1 TAB PO DAILY for 30 Days, #30 TAB 0 Refills 07/13/25 Metformin HCl (Metformin HCl) 500 Mg Tablet, 1 TAB PO DAILY for 30 Days, #60 TAB 0 Refills 07/13/25 Losartan Potassium (Losartan Potassium) 50 Mg Tablet, 50 MG PO BID, TAB 04/24/20 Metoprolol Succinate (Metoprolol Succinate) 100 Mg Tab.er.24h, 100 MG PO DAILY, TAB 11/27/15 Discontinued Reported Medications Amlodipine Besylate (Amlodipine Besylate) 10 Mg Tablet, 10 MG PO HS, TAB 04/24/20 Aspirin (ASPIRIN 81MG CHEW TAB) 81 Mg Tab.chew, 81 MG PO DAILY, TAB.CHEW 04/24/20 Atorvastatin Calcium (Atorvastatin Calcium) 20 Mg Tablet, 20 MG PO DAILY, TAB 04/24/20 Discontinued Scripts Ferrous Sulfate (Ferrous Sulfate) 325 Mg Tablet, 325 MG PO DAILY for 15 Days, #15 TAB Prov:HOSSEIN MAURO NP 04/26/20 Sucralfate (Carafate Susp) 1 Gm/10 Ml Susp, 1 GM PO TID for 15 Days, #450 ML Prov:HOSSEIN MAURO TOOL SETTER APPRENTICE 04/26/20 Omeprazole (Omeprazole) 40 Mg Capsule.dr, 40 MG PO BID for 15 Days, #30 CAP Prov:HOSSEIN MAURO NP 04/26/20 Ferrous Sulfate (Ferrous Sulfate) 325 Mg Tablet, 325 MG PO DAILY for 15 Days, #15 TAB Prov:ZUNILDAHOSSEIN TOOL SETTER APPRENTICE 04/26/20 Pantoprazole Sodium (Protonix) 40 Mg Tablet.dr, 40 MG PO DAILY for 15 Days, #15 TAB Prov:ZUNILDAHOSSEIN TOOL SETTER APPRENTICE 04/26/20 New Medications: Furosemide (Lasix 20Mg Tab) 20 Mg Tablet 1 TAB PO DAILY for 30 Days, #30 TAB 0 Refills Spironolactone (Spironolactone) 50 Mg Tablet 1 TAB PO DAILY for 30 Days, #30 TAB 0 Refills Continued Medications: Allopurinol (Allopurinol) 100 Mg Tablet 1 TAB PO DAILY for 30 Days, #30 TAB 0 Refills Losartan Potassium (Losartan Potassium) 50 Mg Tablet 50 MG PO BID, TAB Metformin HCl (Metformin HCl) 500 Mg Tablet 1 TAB PO DAILY for 30 Days, #60 TAB 0 Refills Metoprolol Succinate (Metoprolol Succinate) 100 Mg Tab.er.24h 100 MG PO DAILY, TAB Pravastatin Sodium (Pravastatin Sodium) 20 Mg Tablet 1 TAB PO HS for 30 Days, #30 TAB 0 Refills Sildenafil Citrate (Sildenafil) 20 Mg Tablet 100 MG PO AD, TAB Time spent arranging discharge: 1-30 minutes ATTESTATION BY PHYSICIAN I have seen and examined the patient. I reviewed the documentation, medical decision making, and treatment plan as noted by the resident physician above. I agree with the findings and plan of care. GARY BUENO MD, ADIL SHAH QUADRI MD Jul 15, 2025 14:37
--- NOTE | 2025-07-15 23:45 | PN ---
FOLLOWUP PROGRESS NOTE SUBJECTIVE: This is a 60-year-old male initially presented to the hospital and found to have renal dysfunction as well as significant hyponatremia. The patient with evidence of cirrhosis. The patient is scheduled for the paracentesis. The patient is started on a fluid restriction. Serum sodium is actually improved and he is being seen as a followup visit for all of the above. REVIEW OF SYSTEMS: GENERAL: He is feeling improved since admission. HEENT: No change in vision. No change in hearing. CARDIOVASCULAR: There is no current chest pain or palpitations. PULMONARY: Denies any current shortness of breath. GASTROINTESTINAL: He is tolerating a diet. MUSCULOSKELETAL: Complains of weakness. PHYSICAL EXAMINATION: VITAL SIGNS: Blood pressure: 136/77. Pulse 80. GENERAL: He is a chronically ill male, older than appearing. HEENT: Atraumatic. Pupils are equal, round, and reactive to light. Oropharynx is without exudate. Nares clear. NECK: There is no JVP. There is no thyromegaly, no mass. CARDIOVASCULAR: Regular. There is no S3 or S4 gallop. LUNGS: Coarse with equal thoracic movement. ABDOMEN: Soft and nontender. EXTREMITIES: Reveal no clubbing or cyanosis. NEUROLOGICAL: He is awake. He is alert. He is oriented. SKIN: Reveals no rash or nodules. BACK: There is no CVA tenderness. There are no back deformities. LABORATORY DATA: Sodium 131, potassium 3.7, BUN 17, creatinine 1, phosphorus 2.2, hemoglobin 12.5, hematocrit 35, and white blood cell count is 4,000. IMPRESSION: * Renal dysfunction. * Hyponatremia. * Cirrhosis. * Hypertension. PLAN: The patient's serum sodium is much improved. The patient's hydrochlorothiazide will be discontinued indefinitely. He is encouraged to continue with the fluid restriction upon discharge to home. The patient is now status post paracentesis and will continue to follow closely. His electrolytes have all been aggressively repleted. The patient and family were at the bedside. Multiple questions were all answered. Once the patient is discharged, he can followup in the Renal clinic. TID: [id number] RECEIPT: [id number]
[2025-07-16 05:11] LABS: HEPATITIS A ANTIBODY TOTAL Negative (Negative)
[2025-07-20 15:13] LABS: ALPHA-1-ANTITRYPSIN 174 mg/dL (101-187)
[2025-07-21 16:27] LABS: HEPATITIS B CORE AB TOTAL Non-Reactive (Nonreactive); HEPATITIS B CORE IGM ANTIBODY Non-Reactive (Negative)
== END 2025-07-15 17:00 | disposition home or self-care (01) | DRG 433 ==
LOC: EDH 11:07 → EDHIP 16:46 → 3BH 07-14 15:00
PROVIDERS: ADMIT Internal Medicine; ATTEND Internal Medicine
PROC: 0W9G3ZZ Drainage of Peritoneal Cavity, Percutaneous Approach (ICD-10-PCS; principal; 2025-07-15)
DX: K70.31 Alcoholic cirrhosis of liver with ascites (principal); E87.1 Hypo-osmolality and hyponatremia; K70.11 Alcoholic hepatitis with ascites; N17.9 Acute kidney failure, unspecified; E88.09 Other disorders of plasma-protein metabolism, not elsewhere classified; E11.22 Type 2 diabetes mellitus with diabetic chronic kidney disease; E66.9 Obesity, unspecified; I12.9 Hypertensive chronic kidney disease with stage 1 through stage 4 chronic kidney disease, or unspecified chronic kidney disease; N18.9 Chronic kidney disease, unspecified; E83.51 Hypocalcemia; M10.9 Gout, unspecified; T50.2X5A Adverse effect of carbonic-anhydrase inhibitors, benzothiadiazides and other diuretics, initial encounter; E87.70 Fluid overload, unspecified; E78.00 Pure hypercholesterolemia, unspecified; E87.8 Other disorders of electrolyte and fluid balance, not elsewhere classified; Z79.899 Other long term (current) drug therapy; Z68.31 Body mass index [BMI] 31.0-31.9, adult
CPT/HCPCS: 36415; 49083; 74178; 76705; 80048; 80053; 81003; 82042; 82103; 82104; 82105; 82140; 82378; 82390; 82533; 82570; 82948; 83540; 83550; 83735; 83930; 83935; 84100; 84157; 84300; 84443; 85025; 85027; 85610; 85730; 86015; 86038; 86215; 86235; 86376; 86381; 86701; 86704; 86705; 86706; 86708; 86803; 87071; 87205; 87340; 87390; 88108; 88305; 89051; 96361; 96365; 96375; 99285; C1729; G0378; J3411; J3475; J3490; P9047; Q9967